=== PATIENT | female | born 1950 | race Caucasian/White ===

== ENCOUNTER 2022-04-17 07:09 | Day surgery (SDC) | payer MEDICARE, BC, SELFPAY ==
[2022-04-17] MEDS: TETRACAINE 0.5% OPHTH 1 DROP EYE-LEFT ×2 (07:30→07:35)
[2022-04-17] MEDS: KETOROLAC OPHTH 0.5% 1 DROP EYE-LEFT ×2 (07:30→07:35)
[2022-04-17 07:37] VITALS: BP 108/68; PULSE 77; RESP 16; TEMP 36.6; O2SAT 95; BMI 24.5
[2022-04-17] MEDS: ETHYL CHLORIDE 1 APPLICATION 1 APPLIC TOPICAL (07:49)
[2022-04-17] MEDS: SODIUM CHLORIDE 0.9 % (FLUSH) 10 ML SYRINGE IVF (07:50)
[2022-04-17] MEDS: TETRACAINE 0.5% OPHTH 2 DROP EYE-LEFT (08:34)
[2022-04-17] MEDS: BALANCED SALT IRRIG SOLN 15 ML EYE-LEFT (08:39)
--- NOTE | 2022-04-17 08:45 | SUR.PREOP ---
0719: The eye drops brought by the patient (Ketorolac and Prednisolone) are examined and I have determined they are labeled by the patient's pharmacy for this patient as prescribed by the surgeon. The bottles are intact, recently obtained and appear to be correct.
[2022-04-17 09:00] VITALS: BP 130/74; PULSE 74; RESP 18; TEMP 36.3; O2SAT 93
--- NOTE | 2022-04-17 09:00 | W.ANESCHARGE ---
Anesthesia Charges Start Date/Time Anesthesia Start Date: 04/17/22 Anesthesia Start Time: 08:32 Stop Date/Time Anesthesia Stop Date: 04/17/22 Anesthesia Stop Time: 09:05 Summary Emergency: No Extremes of Age: Over 68-CPT 44767
--- NOTE | 2022-04-17 09:50 | W.PM.OPTPROC ---
Procedure Note Date of procedure: 04/17/22 Will [facility] bill your pro fee for this procedure?: Yes Procedure Description: SURGEON: Manisha Ivy MD PREOPERATIVE DIAGNOSIS: Nuclear sclerotic cataract, left eye. POSTOPERATIVE DIAGNOSIS: Nuclear sclerotic cataract, left eye. NAME OF OPERATION: Phacoemulsification of cataract with posterior chamber intraocular lens implantation in the left eye. ANESTHESIA: Topical. ESTIMATED BLOOD LOSS: Less than 2 cc. COMPLICATIONS: None. PATHOLOGY SPECIMEN: None. INDICATIONS: See consult note for details. The risks, benefits and alternatives of the procedure were explained to the patient, who elected to proceed and signed informed consent to do so. PROCEDURE: The patient was brought to the pre-holding area where the left eye was identified as the operative eye. I placed my initials above this eye. The patient received eye drops consisting of 0.5% tetracaine, 1% tropicamide, 10% phenylephrine, and 0.5% ketorolac. The patient was then brought to the operating room where the left eye was again identified as the operative eye. The eye was prepped with Betadine and draped in the usual sterile ophthalmic fashion. A #15 super-sharp blade was used to create a paracentesis site. 1% non-preserved intracameral lidocaine was injected into the anterior chamber. Endocoat was injected into the anterior chamber. A 2.4 mm keratome was used to create a three-plane self-sealing incision 1 mm anterior to the temporal limbus. A cystotome was used to create an anterior capsular leaflet. The Utrata forceps were used to extend this to form a continuous curvilinear capsulorrhexis. Hydrodissection was performed. The cataract was removed with phacoemulsification using the [id number] technique. The irrigation and aspiration tip was used to remove the remaining cortex. Healon was injected into the capsular bag. An ROBERTO ZCB00 intraocular lens of 22.0 diopters was injected into the capsular bag. The irrigation and aspiration tip was used to remove the remaining viscoelastic. Balanced salt solution on a cannula was used to hydrate the wound, and the wound was found to be watertight. The pupil was noted to be round. DISPOSITION: The patient was taken to the recovery room and discharged to home in stable condition. The patient was instructed to call me or go to the emergency department with any sudden change, including dramatic loss of vision, severe pain in the eye or eyebrow region, nausea, or vomiting. The patient will follow up in the clinic tomorrow morning. Surgeon: Manisha Ivy MD
== END 2022-04-17 09:28 | disposition home or self-care (01) ==
PROVIDERS: PCP Physician Assistant; Visit Provider Ophthalmology
PROC: (CPT 66984; principal; 2022-04-17 07:30)
DX: H25.12 Age-related nuclear cataract, left eye (principal)
CPT/HCPCS: 66984; 00142; 99100; A9270; J2250; J3010; V2632

== ENCOUNTER 2022-05-01 06:08 | Day surgery (SDC) | payer MEDICARE, BC, SELFPAY ==
[2022-05-01] MEDS: TETRACAINE 0.5% OPHTH 1 DROP EYE-RIGHT ×2 (06:41→06:49)
[2022-05-01] MEDS: KETOROLAC OPHTH 0.5% 1 DROP EYE-RIGHT ×2 (06:48→06:54)
[2022-05-01 06:50] VITALS: BMI 24.5
[2022-05-01 06:56] VITALS: BP 139/68; PULSE 71; RESP 16; TEMP 36.9; O2SAT 94
[2022-05-01] MEDS: TETRACAINE 0.5% OPHTH 2 DROP EYE-RIGHT (07:17)
[2022-05-01] MEDS: BALANCED SALT IRRIG SOLN 15 ML EYE-RIGHT (07:21)
--- NOTE | 2022-05-01 07:23 | W.ANESCHARGE ---
Anesthesia Charges Start Date/Time Anesthesia Start Date: 05/01/22 Anesthesia Start Time: 07:12 Stop Date/Time Anesthesia Stop Date: 05/01/22 Anesthesia Stop Time: 07:45 Summary Emergency: Yes
[2022-05-01 07:42] VITALS: BP 129/86; PULSE 69; RESP 16; TEMP 36.4; O2SAT 93
--- NOTE | 2022-05-01 07:53 | W.ANESCHARGE ---
Anesthesia Charges Start Date/Time Anesthesia Start Date: 05/01/22 Anesthesia Start Time: 07:12 Stop Date/Time Anesthesia Stop Date: 05/01/22 Anesthesia Stop Time: 07:45 Summary Emergency: No Extremes of Age: Over 68-CPT 63785
--- NOTE | 2022-05-01 08:10 | SUR.PHASEII ---
The eye drops brought by the patient (Ketorolac and Prednisolone) are examined and I have determined they are labeled by the patient's pharmacy for this patient as prescribed by the surgeon. The bottles are intact, recently obtained and appear to be correct.
--- NOTE | 2022-05-01 08:27 | SUR.PHASEII ---
Discharge instructions reviewed with patient. Patient verbalized understanding. Discharge instruction pamphlet sent with patient.
--- NOTE | 2022-05-01 08:30 | W.PM.OPTPROC ---
Procedure Note Date of procedure: 05/01/[address] [facility] bill your pro fee for this procedure?: Yes Procedure Description: SURGEON: Manisha Ivy MD PREOPERATIVE DIAGNOSIS: Nuclear sclerotic cataract, right eye. POSTOPERATIVE DIAGNOSIS: Nuclear sclerotic cataract, right eye. NAME OF OPERATION: Phacoemulsification of cataract with posterior chamber intraocular lens implantation in the right eye. ANESTHESIA: Topical. ESTIMATED BLOOD LOSS: Less than 2 cc. COMPLICATIONS: None. PATHOLOGY SPECIMEN: None. INDICATIONS: See consult note for details. The risks, benefits and alternatives of the procedure were explained to the patient, who elected to proceed and signed informed consent to do so. PROCEDURE: The patient was brought to the pre-holding area where the right eye was identified as the operative eye. I placed my initials above this eye. The patient received eye drops consisting of 0.5% tetracaine, 1% tropicamide, 10% phenylephrine, and 0.5% ketorolac. The patient was then brought to the operating room where the right eye was again identified as the operative eye. The eye was prepped with Betadine and draped in the usual sterile ophthalmic fashion. A #15 super-sharp blade was used to create a paracentesis site. 1% non-preserved intracameral lidocaine was injected into the anterior chamber. Endocoat was injected into the anterior chamber. A 2.4 mm keratome was used to create a three-plane self-sealing incision 1 mm anterior to the temporal limbus. A cystotome was used to create an anterior capsular leaflet. The Utrata forceps were used to extend this to form a continuous curvilinear capsulorrhexis. Hydrodissection was performed. The cataract was removed with phacoemulsification using the [id number]-nvi-[id number] technique. The irrigation and aspiration tip was used to remove the remaining cortex. Healon was injected into the capsular bag. An ROBERTO ZCB00 intraocular lens of 20.5 diopters was injected into the capsular bag. The irrigation and aspiration tip was used to remove the remaining viscoelastic. Balanced salt solution on a cannula was used to hydrate the wound, and the wound was found to be watertight. The pupil was noted to be round. DISPOSITION: The patient was taken to the recovery room and discharged to home in stable condition. The patient was instructed to call me or go to the emergency department with any sudden change, including dramatic loss of vision, severe pain in the eye or eyebrow region, nausea, or vomiting. The patient will follow up in the clinic tomorrow morning. Surgeon: Manisha Ivy MD
== END 2022-05-01 08:12 | disposition home or self-care (01) ==
PROVIDERS: PCP Physician Assistant; Visit Provider Ophthalmology
PROC: (CPT 66984; principal; 2022-05-01 06:15)
DX: H25.11 Age-related nuclear cataract, right eye (principal)
CPT/HCPCS: 66984; 00142; 99100; 99140; A9270; J2250; J3010; V2632

== ENCOUNTER 2023-01-10 21:52 | Emergency (ER) | payer MEDICARE, BC, SELFPAY ==
[2023-01-10] VITALS (20 sets, daily range): BP systolic 101–126; BP diastolic 68–78; PULSE 83–109; RESP 16–18; TEMP 36.4; O2SAT 91–96; BMI 25.0
[2023-01-10] MEDS: 0.9 % SODIUM CHLORIDE 1000 ml 1,000 ML IV (22:30)
--- NOTE | 2023-01-10 22:57 | CRLHL7_ITS ---
For Patients: As a result of the Century Cures Act, medical imaging exams and procedure reports are released immediately into your electronic medical record. You may view this report before your referring provider. If you have questions, please contact your health care provider. INDICATION: Chest pain. TECHNIQUE: Chest 1 view. COMPARISON: Chest radiograph 09/22/2011. FINDINGS: No focal consolidation, pleural effusion, or pneumothorax. Normal heart size and pulmonary vascularity. Degenerative changes of the glenohumeral joints. IMPRESSION: No acute cardiopulmonary findings. Dictated by Laura Moore MD @ 01/10/2023 11:54:18 PM (Electronically Signed)
[2023-01-10] MEDS: ASPIRIN 81 MG TAB.CHEW 324 MG PO (23:04)
[2023-01-10 23:12] LABS: Basophils Percent Auto 0.1 % (0.0-3.0); Eosinophils Percent Auto 0.2 % (0.0-7.0); Hematocrit 32.4 % (33.0-51.0); Immature Granulocytes Pct Auto 0.6 %; Lymphocytes Percent Auto 6.9 % (20-44); Mean Corpuscular HGB Conc 34 gm/dL (32-36); Mean Corpuscular Hemoglobin 31 pg (26-34); Mean Corpuscular Volume 92 fL (80-100); Monocytes Percent Auto 8.9 % (0.0-11.0); Neutrophils Percent Auto 83.3 % (42.0-72.0); Platelet Count* 211 K/uL (140-440); RDW Coefficient of Variation % 12.8 % (11.5-15.5); Red Blood Count 3.53 m/uL (4.00-5.20); White Blood Count* 15.97 K/uL (4.50-11.00)
[2023-01-10 23:14] LABS: Chloride* 100 mmol/L (96-114); Potassium* 4.2 mmol/L (3.6-5.1); Sodium* 133 mmol/L (135-149)
[2023-01-10 23:15] LABS: Slide Review Reflex No
[2023-01-10 23:17] LABS: Est. Creatinine Clearance* 44.41; Estimated Glomerular Filt Rate 59 ml/min
[2023-01-10] MEDS: HEPARIN 25,000 UNIT/500 ML BAG 16 UNIT IV (23:17)
[2023-01-10 23:18] LABS: Blood Urea Nitrogen* 35 mg/dL (7-30); Calcium* 9.2 mg/dL (8.4-10.6); Carbon Dioxide* 23 mmol/L (20-32); Glucose* 143 mg/dL (60-115)
[2023-01-10] MEDS: HEPARIN 5,000 UNIT/0.5 ML INJ 4000 UNIT IVP (23:18)
[2023-01-10 23:20] LABS: INR 0.97 (0.91-1.10); Prothrombin Time 13.5 Seconds
[2023-01-10 23:21] LABS: C Reactive Protein* 1.3 mg/dL (0.5-1.0); Partial Thromboplastin Time* 26 Seconds (23-33)
[2023-01-10 23:23] LABS: D Dimer Quantitative* 0.84 ug/ml (0.00-0.50)
[2023-01-10 23:27] LABS: NT Pro B Type NatriureticPept* 1040 pg/mL
[2023-01-10 23:50] LABS: Troponin I* 8.78 ng/mL (0.01-0.04)
[2023-01-10] MEDS: 0.9 % SODIUM CHLORIDE 500 ML 500 ML IV (23:59)
[2023-01-10] MEDS: NITROGLYCERIN 0.4 MG TAB.SUBL SUBLINGUAL (23:59)
[2023-01-11] VITALS: PULSE 87; O2SAT 91
[2023-01-11 00:01] VITALS: BP 112/66; PULSE 89; RESP 18; RESP 19; TEMP 36.4; O2SAT 87
[2023-01-11 00:03] VITALS: BP 110/69; PULSE 92; O2SAT 91
[2023-01-11 00:10] VITALS: PULSE 86; O2SAT 94
[2023-01-11 00:11] VITALS: BP 108/72; PULSE 87; RESP 16; O2SAT 92
--- NOTE | 2023-01-11 00:11 | PC.NURSE ---
report given to Angela GONZALEZ at [facility].
[2023-01-11] MEDS: MORPHINE 2 MG/ML inj IVP (00:23)
[2023-01-11] MEDS: NITROGLYCERIN 0.4 MG TAB.SUBL SUBLINGUAL (00:23)
--- NOTE | 2023-01-11 00:27 | PC.NURSE ---
patient transport to EMS
--- NOTE | 2023-01-11 01:10 | ED_ITS ---
HPI - Chest Pain General Date Seen: 01/10/23 Chief Complaint: Chest Pain Stated Complaint: Rapid heart rate Time Seen by Provider: 01/10/23 22:53 Source: patient Mode of arrival: ambulatory Limitations: no limitations History of Present Illness HPI narrative: Patient is 72-year-old female who approximately at 7:00 p.m. armin developed chest discomfort with radiation to left shoulder and back, it was associated with slight nausea, and a feeling that she has had before that she describes as heartburn. She took some Gaviscon at home, felt the did not help, and then drove herself to the emergency room to be seen. She has no past history of any cardiac issues, although admits to me that she has had previous episodes the chest pain has been worked up with stress test. While she was in triage her pain went away in, she tells me it is pain-free at current time. No recent exertion causing discomfort, she denies no chest pain shortness of breath, leg swelling, coughing, she has some mild COPD she tells me. MD complaint: chest pain Pertinent past history: asthma Prior episodes: Yes Onset: during rest Pain location: substernal and left chest Pain radiation: left arm, back and left shoulder Severity: moderate Quality: tightness and aching Relieving factors: nothing Exacerbating factors: nothing Associated symptoms: nausea Treatment prior to arrival: other (Gaviscon) Risk Factors Coronary artery disease risk factors: smoking history, hypertension and family history of CAD before age 50 Thoracic aortic dissection risk factors: none Related Data On Oral Contraceptives: No Home Medications Medication Instructions Recorded Confirmed albuterol sulfate 90 mcg/actuation 1 - 2 inh inhalation Q4H PRN 04/16/22 05/01/22 aerosol inhaler budesonide-formoterol HFA 160 2 inh inhalation BID 04/16/22 05/01/22 mcg-4.5 mcg/actuation aerosol inhaler bupropion HCl 300 mg 24 hr tablet, 300 mg PO .AM 04/16/22 05/01/22 extended release clotrimazole 10 mg mercedez 10 mg mucous membrane 5XD 04/16/22 05/01/22 fluvoxamine 100 mg tablet 100 mg PO HS 04/16/22 05/01/22 fluvoxamine 50 mg tablet 50 mg PO HS 04/16/22 05/01/22 glucosamine sulfate dipotassium Cl 1 cap PO DAILY 04/16/22 05/01/22 500 mg-chondroitin 400 mg capsule guaifenesin 1,200 mg tablet, 1,200 mg PO BID PRN 04/16/22 05/01/22 extended release 12 hr ipratropium 0.5 mg-albuterol 3 mg 3 ml inhalation QID PRN 04/16/22 05/01/22 (2.5 mg base)/3 mL nebulization soln lorazepam 0.5 mg tablet 0.5 mg PO BID PRN 04/16/22 05/01/22 multivitamin (Multiple Vitamins 1 tab PO DAILY 04/16/22 05/01/22 tablet) omega 3-qby-hry-fish oil 1,200 mg 1 cap PO DAILY 04/16/22 05/01/22 (144 mg-216 mg) capsule omeprazole 20 mg capsule,delayed 20 mg PO DAILY 04/16/22 05/01/22 release quetiapine 400 mg tablet (Seroquel) 400 mg PO QHS 04/16/22 05/01/22 Allergies Allergy/AdvReac Type Severity Reaction Status Date / Time levofloxacin [From Levaquin] Allergy Hives Verified 04/17/22 08:31 azithromycin AdvReac Verified 04/17/22 08:31 Erythromycin Allergy Intermediate upset Uncoded 03/19/22 13:51 stomach Quinolones Allergy Mild hives Uncoded 03/19/22 13:51 Review of Systems Status of ROS Reports: 10 or more systems reviewed and unremarkable except as noted in History and below [facility] Medical History Major depressive disorder, recurrent, in full remission ?F33.42 - Major depressive disorder, recurrent, in full remission (ICD-10) Pulmonary nodule, right ?R91.1 - Solitary pulmonary nodule (ICD-10) Osteopenia ?M85.80 - Other specified disorders of bone density and structure, unspecified site (ICD-10) Knee osteoarthritis ?M17.9 - Osteoarthritis of knee, unspecified (ICD-10) Acute gastric ulcer with hemorrhage, without mention of obstruction ?K25.0 - Acute gastric ulcer with hemorrhage (ICD-10) Alcohol abuse, in remission ?F10.11 - Alcohol abuse, in remission (ICD-10) OCD (obsessive compulsive disorder) ?F42.9 - Obsessive-compulsive disorder, unspecified (ICD-10) Generalized anxiety disorder ?F41.1 - Generalized anxiety disorder (ICD-10) Agoraphobia with panic disorder ?F40.01 - Agoraphobia with panic disorder (ICD-10) COPD (chronic obstructive pulmonary disease) ?J44.9 - Chronic obstructive pulmonary disease, unspecified (ICD-10) Major depressive disorder ?F32.9 - Major depressive disorder, single episode, unspecified (ICD-10) Surgical History History of esophagogastroduodenoscopy (EGD) ?Z98.890 - Other specified postprocedural states (ICD-10) Hx of arthroscopy of left knee ?Z98.890 - Other specified postprocedural states (ICD-10) History of left knee replacement ?Z96.652 - Presence of left artificial knee joint (ICD-10) Hx of tubal ligation ?Z98.51 - Tubal ligation status (ICD-10) Social History Smoking Status: Former smoker What tobacco products do you use: cigarettes Smoking quit date/years: <= 15 years ago How often do you have a drink containing alcohol: never How often do you have six or more drinks on one occasion: Never AUDIT-C Alcohol total score: 0 Non-prescribed substance use: denies use Caffeine: Yes Exam Narrative Exam Narrative: Patient is seen and stabilization room 2, he is alert oriented speaking to me normally. Her pupils are equal round reactive to light her GCS is 15/15, TMs are normal, carotid upstrokes are equal bilaterally heard JVP is flat, her chest is clear bilaterally with no wheezing crackles noted, her heart sounds are normal no clicks murmurs or gallops, her abdomen is soft, there is no tenderness to palpation bowel sounds are normal, no CVA tenderness and she moves all extremities independently well with absence of edema her distal pulses are normal, her normal power bilaterally in both her proximal distal extremities, and she has symmetrically normal. Neurologically cranial nerves 3-12 are normal. Const Vital Signs, click to edit/add: Vital Signs - 24 hr 01/10/23 22:02 01/10/23 22:39 01/10/23 22:41 Temperature 97.6 F Pulse Rate 90 90 Pulse Rate [Pulse Oximeter] 109 H Respiratory Rate 16 16 16 Blood Pressure 101/68 Blood Pressure [Right Upper Arm] 121/78 Pulse Oximetry 91 91 92 Oxygen Delivery Method Room Air Oxygen Flow Rate 01/10/23 22:42 01/10/23 22:47 01/10/23 22:50 Temperature Pulse Rate 90 91 88 Pulse Rate [Pulse Oximeter] Respiratory Rate 18 18 Blood Pressure 117/68 Blood Pressure [Right Upper Arm] Pulse Oximetry 93 92 91 Oxygen Delivery Method Oxygen Flow Rate 01/10/23 22:51 01/10/23 23:00 01/10/23 23:01 Temperature Pulse Rate 88 90 88 Pulse Rate [Pulse Oximeter] Respiratory Rate 18 16 18 Blood Pressure 104/72 113/75 Blood Pressure [Right Upper Arm] Pulse Oximetry 94 94 93 Oxygen Delivery Method Oxygen Flow Rate 01/10/23 23:14 01/10/23 23:20 01/10/23 23:21 Temperature Pulse Rate 96 89 89 Pulse Rate [Pulse Oximeter] Respiratory Rate 18 18 16 Blood Pressure 126/75 Blood Pressure [Right Upper Arm] Pulse Oximetry 94 96 95 Oxygen Delivery Method Oxygen Flow Rate 01/10/23 23:30 01/10/23 23:31 01/10/23 23:32 Temperature Pulse Rate 84 85 85 Pulse Rate [Pulse Oximeter] Respiratory Rate 16 18 Blood Pressure 116/75 Blood Pressure [Right Upper Arm] Pulse Oximetry 94 93 95 Oxygen Delivery Method Room Air Oxygen Flow Rate 01/10/23 23:40 01/10/23 23:41 01/10/23 23:50 Temperature Pulse Rate 84 83 85 Pulse Rate [Pulse Oximeter] Respiratory Rate Blood Pressure 117/73 Blood Pressure [Right Upper Arm] Pulse Oximetry 93 93 93 Oxygen Delivery Method Oxygen Flow Rate 01/10/23 23:51 01/10/23 23:56 01/11/23 00:00 Temperature Pulse Rate 84 85 87 Pulse Rate [Pulse Oximeter] Respiratory Rate 18 16 Blood Pressure 119/75 120/74 Blood Pressure [Right Upper Arm] Pulse Oximetry 93 95 91 Oxygen Delivery Method Oxygen Flow Rate 01/11/23 00:01 01/11/23 00:01 01/11/23 00:01 Temperature 97.5 F L Pulse Rate 89 89 89 Pulse Rate [Pulse Oximeter] Respiratory Rate 19 18 Blood Pressure 112/66 112/66 112/66 Blood Pressure [Right Upper Arm] Pulse Oximetry 87 L 87 L 87 L Oxygen Delivery Method Nasal Cannula Nasal Cannula Nasal Cannula Oxygen Flow Rate 1 1 1 01/11/23 00:01 01/11/23 00:03 01/11/23 00:10 Temperature Pulse Rate 89 92 86 Pulse Rate [Pulse Oximeter] Respiratory Rate 18 Blood Pressure 112/66 110/69 Blood Pressure [Right Upper Arm] Pulse Oximetry 87 L 91 94 Oxygen Delivery Method Nasal Cannula Nasal Cannula Oxygen Flow Rate 1 1 01/11/23 00:11 Temperature Pulse Rate 87 Pulse Rate [Pulse Oximeter] Respiratory Rate 16 Blood Pressure 108/72 Blood Pressure [Right Upper Arm] Pulse Oximetry 92 Oxygen Delivery Method Nasal Cannula Oxygen Flow Rate 1 Course Course Hospital Course: Patient was seen or her EKG was seen initially, this showed what appeared to be a an acute STEMI, ST elevation is seen V2 through V6, and also laterally in 1 aVL, some mild reciprocal changes are noted in the inferior leads. She however was pain-free by the this time, the other was another trauma ongoing during this time that a split my attention between these 2 patients, after her initial point of care troponin came back elevated at 4.5, I contacted cardiology at [facility], unfortunately they were very busy it took 40 minutes them to return my call. I spoke to from cardiology there, by then we had 2 further EKGs, which showed some normalization of her EKG in comparison to the [address] elevation came down nicely, but she had Q-waves notable across the precordial leads. 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 Vital Signs Vital signs: Initial Vital Signs Temperature 97.6 F 01/10/23 22:02 Temperature Source Temporal Artery Scan 01/10/23 22:02 Pulse Rate 109 H 01/10/23 22:02 Respiratory Rate 16 01/10/23 22:02 Blood Pressure 121/78 01/10/23 22:02 Blood Pressure Mean 92 01/10/23 22:02 Blood Pressure Position Sitting 01/10/23 22:02 Pulse Oximetry 91 01/10/23 22:02 Oxygen Delivery Method Room Air 01/10/23 22:02 Vital Signs Temperature 97.6 F 01/10/23 22:02 Pulse Rate 109 H 01/10/23 22:02 Respiratory Rate 16 01/10/23 22:02 Blood Pressure 121/78 01/10/23 22:02 Pulse Oximetry 91 01/10/23 22:02 Oxygen Delivery Method Room Air 01/10/23 22:02 Temperature 97.5 F L 01/11/23 00:01 Pulse Rate 87 01/11/23 00:11 Respiratory Rate 16 01/11/23 00:11 Blood Pressure 108/72 01/11/23 00:11 Pulse Oximetry 92 01/11/23 00:11 Oxygen Delivery Method Nasal Cannula 01/11/23 00:11 Oxygen Flow Rate 1 01/11/23 00:11 MDM - Chest Pain MDM Narrative Medical decision making narrative: During the evaluation of this patient I considered multiple differential diagnosis is. The life-threatening differential diagnosis include coronary disease/[place], pulmonary embolism, pneumothorax, pneumonia, and aortic dissection. Other differential diagnosis included but were not limited to pericarditis, myocarditis, chest wall pain, GERD, esophageal rupture, rib fracture contusion, pleurisy, as well as other etiologies. Medical Records Data Attestation: I reviewed the patient's medical records. Lab Data Attestation: I reviewed the patient's lab results. Labs: Lab Results 01/10/23 Range/Units 22:39 WBC 15.97 H (4.50-11.00) K/uL RBC 3.53 L (4.00-5.20) m/uL Hgb 11.0 L (12.0-16.0) gm/dL Hct 32.4 L (33.0-51.0) % MCV 92 (80-100) fL MCH 31 (26-34) pg MCHC 34 (32-36) gm/dL RDW Coeff of Jacque 12.8 (11.5-15.5) % Plt Count 211 (140-440) K/uL Neut % (Auto) 83.3 H (42.0-72.0) % Lymph % (Auto) 6.9 L (20-44) % [place] % (Auto) 8.9 (0.0-11.0) % Eos % (Auto) 0.2 (0.0-7.0) % Baso % (Auto) 0.1 (0.0-3.0) % Neut # (Auto) 13.30 H (1.7-7.0) K/uL Lymph # (Auto) 1.10 (0.90-2.90) K/uL [place] # (Auto) 1.40 H (0.00-0.90) K/UL Eos # (Auto) 0.00 (0.00-0.50) K/uL Baso # (Auto) 0.00 (0.00-0.30) K/uL INR 0.97 (0.91-1.10) APTT 26 (23-33) Seconds D-Dimer Quant (PE/DVT) 0.84 H (0.00-0.50) ug/ml Sodium 133 L (135-149) mmol/L Potassium 4.2 (3.6-5.1) mmol/L Chloride 100 (96-114) mmol/L Carbon Dioxide 23 (20-32) mmol/L BUN 35 H (7-30) mg/dL Creatinine 1.0 (0.5-1.5) mg/dL Estimated Creat Clear 44.41 Estimated GFR 59 ml/min Glucose 143 H (60-115) mg/dL Calcium 9.2 (8.4-10.6) mg/dL Troponin I 8.78 H* (0.01-0.04) ng/mL C-Reactive Protein 1.3 H (0.5-1.0) mg/dL NT-Pro-B Natriuret Pep 1040 pg/mL Imaging Data Chest x-ray: My impression: Normal chest x-ray ECG Data Attestation: I personally reviewed and interpreted this ECG as follows: ECG interpretation date: 01/10/23 Ischemic changes: acute STEMI Critical Care Time Critical Care Time Critical Care Time: Yes Attestation: The patient required my highest level preparedness to intervene emergently and I personally spent this critical care time directly and personally managing the patient. This critical care time included: Obtaining a history; Examining the patient; Pulse oximetry; Ordering and reviewing of studies; Arranging urgent treatment with development of a management plan; Evaluation of patients response to treatment; Frequent reassessment discussions with other providers. This critical care time was performed to assess and manage the high probability of imminent life-threatening deterioration that could result in multiorgan failure. It was exclusive of separate billable procedures and treating other patients and teaching time. Total Critical Care Time in Minutes: 45 Discharge Plan Discharge Clinical Impression: ST elevation (STEMI) myocardial infarction Patient Disposition: Xfer [facility] Discharge Location: [facility] Condition: Critical Prescriptions: No Action albuterol sulfate 90 mcg/actuation HFA aerosol inhaler 1 - 2 inh inhalation Q4H PRN ipratropium-albuterol 0.5 mg-3 mg(2.5 mg base)/3 mL solution for nebulization 3 ml inhalation QID PRN budesonide-formoterol 160-4.5 mcg/actuation HFA aerosol inhaler 2 inh inhalation BID bupropion HCl 300 mg tablet extended release 24 hr 300 mg PO .AM clotrimazole 10 mg mercedez 10 mg mucous membrane 5XD omega 4-qmw-qxo-fish oil 1,200 (144-216) mg capsule 1 cap PO DAILY fluvoxamine 100 mg tablet 100 mg PO HS Patient Comments: TAKE 1 TABLET BY MOUTH IN THE MORNING AND AT BEDTIME fluvoxamine 50 mg tablet 50 mg PO HS glucosamine gomez 2KCl-chondroit 500-400 mg capsule 1 cap PO DAILY Rx Instructions: give with meal/snack guaifenesin 1,200 mg tablet extended release 12hr 1,200 mg PO BID PRN lorazepam 0.5 mg tablet 0.5 mg PO BID PRN multivitamin [Multiple Vitamins] Tablet 1 tab PO DAILY omeprazole 20 mg capsule,delayed release(DR/EC) 20 mg PO DAILY quetiapine [Seroquel] 400 mg tablet 400 mg PO QHS Follow Up/Referrals: Shivani Conteh PA [Primary Care Provider] -
== END 2023-01-11 00:29 | disposition short-term general hospital (02) ==
LOC: ED 22:59
PROVIDERS: Emergency Provider Family Medicine; PCP Physician Assistant
DX: I21.3 ST elevation (STEMI) myocardial infarction of unspecified site (principal)
CPT/HCPCS: 36415; 71045; 80048; 83880; 84484; 85025; 85379; 85610; 85730; 86140; 93005; 96374; 99285; 99291; A9270; J1644; J2270; J7030; J7120

== ENCOUNTER 2023-01-11 00:14 | Outpatient (CLI) | payer MEDICARE, BC, SELFPAY | END 2023-01-11 00:15 | disposition home or self-care (01) | PROVIDERS: PCP Physician Assistant; Visit Provider Family Medicine | DX: I21.3 ST elevation (STEMI) myocardial infarction of unspecified site (principal) | CPT/HCPCS: A0425; A0434 ==

== ENCOUNTER 2024-01-25 16:20 | Emergency (ER) | payer MEDICARE, BC, SELFPAY ==
[2024-01-25 16:25] VITALS: BP 124/71; PULSE 81; RESP 18; TEMP 35.8; O2SAT 94; BMI 24.1
--- NOTE | 2024-01-25 16:48 | CRLHL7_ITS ---
For Patients: As a result of the Cures Act, medical imaging exams and procedure reports are released immediately into your electronic medical record. You may view this report before your referring provider. If you have questions, please contact your health care provider. Indication: Fall. Technique: Right knee, 3 views. Comparison: None. Findings/impression: Bones: Right knee arthroplasty changes. The orthopedic hardware appears to be in appropriate alignment. No evidence of hardware fracture or loosening.. Joint spaces: Small to moderate suprapatellar effusion. Soft tissues: Significant soft tissue swelling overlying the patella.. Dictated by Vineet Izaguirre MD @ 01/25/2024 6:33:14 PM (Electronically Signed)
--- NOTE | 2024-01-25 16:48 | ED_ITS ---
HPI - Fall General Chief Complaint: Fall/Minor Trauma Stated Complaint: fall; hit head and right knee (had surgery) Time Seen by Provider: 01/25/24 16:23 History of Present Illness HPI Narrative: This 73-year-old female comes in with an injury to her right knee. She had her right knee replaced 3 months ago and today she fell in the garage onto her right knee. She also did bump the right side of her head but did not have loss of consciousness. She does report some discomfort in her jaw but has normal range of motion and teeth are aligned normally. She was able to get up and ambulate. She does take a baby aspirin daily and does have some swelling and ecchymosis over the patella of the right knee. Related Data Home Medications ?Medication ?Instructions ?Recorded ?Confirmed albuterol sulfate 90 mcg/actuation 1 - 2 inh inhalation Q4H PRN 04/16/22 01/25/24 aerosol inhaler budesonide-formoterol HFA 160 2 inh inhalation BID 04/16/22 01/25/24 mcg-4.5 mcg/actuation aerosol inhaler bupropion HCl 300 mg 24 hr tablet, 300 mg PO .AM 04/16/22 01/25/24 extended release fluvoxamine 100 mg tablet 100 mg PO HS 04/16/22 01/25/24 fluvoxamine 50 mg tablet 50 mg PO HS 04/16/22 01/25/24 glucosamine sulfate dipotassium Cl 1 cap PO DAILY 04/16/22 01/25/24 500 mg-chondroitin 400 mg capsule multivitamin (Multiple Vitamins 1 tab PO DAILY 04/16/22 01/25/24 tablet) omega 6-bwg-scp-fish oil 1,200 mg 1 cap PO DAILY 04/16/22 01/25/24 (144 mg-216 mg) capsule omeprazole 20 mg capsule,delayed 20 mg PO DAILY 04/16/22 01/25/24 release quetiapine 400 mg tablet (Seroquel) 400 mg PO QHS 04/16/22 01/25/24 acetaminophen 01/25/24 aspirin 01/25/24 atorvastatin 40 mg tablet 40 mg PO QPM 01/25/24 01/25/24 Allergies Allergy/AdvReac Type Severity Reaction Status Date / Time levofloxacin [From Levaquin] Allergy Hives Verified 04/17/22 08:31 azithromycin AdvReac Verified 04/17/22 08:31 Erythromycin Allergy Intermediate upset Uncoded 03/19/22 13:51 stomach Quinolones Allergy Mild hives Uncoded 03/19/22 13:51 Review of Systems Status of ROS: Reports: 10 or more systems reviewed and unremarkable except as noted in History and below Narrative: Constitutional: No fevers, no weight gain or loss. Eyes: No discharge. No vision changes. HENT: No congestion, no sore throat, no ear pain. Cardiovascular: No chest pain, no palpitations. Respiratory: No shortness of breath, no wheezes, no cough. Gastrointestinal: No abdominal pain, no vomiting, no diarrhea. Genitourinary: No dysuria, no hematuria. Musculoskeletal: Normal range of motion. Skin: No rashes, no pruritis. Neurological: No dizziness, weakness, sensory change, speech change. Endo/Heme/Allergies: No bruising or bleeding. No polydipsia. Pysch: no suicidality, no anxiety, no insomnia. All other systems reviewed and are negative. [facility] Medical History Major depressive disorder, recurrent, in full remission ?F33.42 - Major depressive disorder, recurrent, in full remission (ICD-10) Pulmonary nodule, right ?R91.1 - Solitary pulmonary nodule (ICD-10) Osteopenia ?M85.80 - Other specified disorders of bone density and structure, unspecified site (ICD-10) Knee osteoarthritis ?M17.9 - Osteoarthritis of knee, unspecified (ICD-10) Acute gastric ulcer with hemorrhage, without mention of obstruction ?K25.0 - Acute gastric ulcer with hemorrhage (ICD-10) Alcohol abuse, in remission ?F10.11 - Alcohol abuse, in remission (ICD-10) OCD (obsessive compulsive disorder) ?F42.9 - Obsessive-compulsive disorder, unspecified (ICD-10) Generalized anxiety disorder ?F41.1 - Generalized anxiety disorder (ICD-10) Agoraphobia with panic disorder ?F40.01 - Agoraphobia with panic disorder (ICD-10) COPD (chronic obstructive pulmonary disease) ?J44.9 - Chronic obstructive pulmonary disease, unspecified (ICD-10) Major depressive disorder ?F32.9 - Major depressive disorder, single episode, unspecified (ICD-10) Surgical History History of esophagogastroduodenoscopy (EGD) ?Z98.890 - Other specified postprocedural states (ICD-10) Hx of arthroscopy of left knee ?Z98.890 - Other specified postprocedural states (ICD-10) History of left knee replacement ?Z96.652 - Presence of left artificial knee joint (ICD-10) Hx of tubal ligation ?Z98.51 - Tubal ligation status (ICD-10) Social History Smoking Status: Former smoker What tobacco products do you use: cigarettes Smoking quit date/years: <= 15 years ago How often do you have a drink containing alcohol: never How often do you have six or more drinks on one occasion: Never AUDIT-C Alcohol total score: 0 Non-prescribed substance use: denies use Caffeine: Yes Exam Narrative: Exam Narrative: Constitutional: Well-developed, well-nourished, no acute distress. HEENT: Small superficial abrasion over the right zygomatic arch. Neck: Normal range of motion. Nontender. Supple. Heart: Regular. No murmurs. Normal rate. Intact distal pulses. Lungs: Clear to auscultation. No chest discomfort. No wheezes, rhonchi, or rales. Abdomen: Normal bowel sounds. Nontender. No rebound tenderness. Genitalia: Deferred. Back: No midline tenderness. Normal range of motion. Extremities: Right knee has normal range of motion. There is no skin injury. There is some swelling over the patella with ecchymosis. The patient is able to ambulate without any discomfort. Skin: Intact. No rash. Warm. No erythema or pallor. Neurologic: No altered sensation. No weakness. Alert and oriented. Psychiatric: No suicidality. No anxiety or depression. No insomnia. Nursing notes and vitals signs are reviewed. Const: Vital Signs, click to edit/add: Vital Signs - 24 hr 01/25/24 16:25 Temperature 96.4 F L Pulse Rate [Pulse Oximeter] 81 Respiratory Rate 18 Blood Pressure [Ri ght Upper Arm] 124/71 Pulse Oximetry 94 Oxygen Delivery Me thod Room Air Course Vital Signs Vital signs: Initial Vital Signs Temperature 96.4 F L 01/25/24 16:25 Temperature Source Temporal Artery Scan 01/25/24 16:25 Pulse Rate 81 01/25/24 16:25 Respiratory Rate 18 01/25/24 16:25 Blood Pressure 124/71 01/25/24 16:25 Blood Pressure Mean 88 01/25/24 16:25 Blood Pressure Position Sitting 01/25/24 16:25 Pulse Oximetry 94 01/25/24 16:25 Oxygen Delivery Method Room Air 01/25/24 16:25 Vital Signs Temperature 96.4 F L 01/25/24 16:25 Pulse Rate 81 01/25/24 16:25 Respiratory Rate 18 01/25/24 16:25 Blood Pressure 124/71 01/25/24 16:25 Pulse Oximetry 94 01/25/24 16:25 Oxygen Delivery Method Room Air 01/25/24 16:25 Temperature 96.4 F L 01/25/24 16:25 Pulse Rate 81 01/25/24 16:25 Respiratory Rate 18 01/25/24 16:25 Blood Pressure 124/71 01/25/24 16:25 Pulse Oximetry 94 01/25/24 16:25 Oxygen Delivery Method Room Air 01/25/24 16:25 MDM - Fall MDM Narrative Medical decision making narrative: This patient comes in for evaluation of an injury to her right knee that was replaced about 3 months ago. She fell prior to arrival but was able to get up and ambulate. She does have some swelling and bruising overlying the patella. An x-ray of the right knee is obtained and by my review there is no sign of fracture or malalignment. Radiology report is pending. The patient feels okay to return home and is not complaining of much pain. She will use [id number] medicines as needed and directed. Discharge Plan Discharge Clinical Impression: Contusion of knee Patient Disposition: Home, Self-Care Condition: Stable Additional Instructions: Continue current plans. Increase activity as tolerated. Follow up with MD return if worsening. Prescriptions: No Action atorvastatin 40 mg tablet 40 mg PO QPM aspirin acetaminophen albuterol sulfate 90 mcg/actuation HFA aerosol inhaler 1 - 2 inh inhalation Q4H PRN budesonide-formoterol 160-4.5 mcg/actuation HFA aerosol inhaler 2 inh inhalation BID bupropion HCl 300 mg tablet extended release 24 hr 300 mg PO .AM omega 1-wws-lep-fish oil 1,200 (144-216) mg capsule 1 cap PO DAILY fluvoxamine 100 mg tablet 100 mg PO HS Patient Comments: TAKE 1 TABLET BY MOUTH IN THE MORNING AND AT BEDTIME fluvoxamine 50 mg tablet 50 mg PO HS glucosamine gomez 2KCl-chondroit 500-400 mg capsule 1 cap PO DAILY Rx Instructions: give with meal/snack multivitamin [Multiple Vitamins] Tablet 1 tab PO DAILY omeprazole 20 mg capsule,delayed release(DR/EC) 20 mg PO DAILY quetiapine [Seroquel] 400 mg tablet 400 mg PO QHS Follow Up/Referrals: Shivani Conteh PA [Referring] - Stand Alone Forms: [facility] Info Instructions
--- OUTSIDE RECORDS SUMMARY | 2024-01-25 17:28 | XMS_ITS | Clinical Summary ---
Author Organization [employer] [facility] Address [place], [place] [address] Care Team Providers Care Research Hydraulic Engineer Name Role Phone Peg Maravilla Primary Care Provider [phone] Allergies Active Allergy Reactions Criticality Noted Date Comments Azithromycin Other - Describe In Comment Field 06/09/2013 Interferes with taking Seroquel Erythromycin GI Upset 05/06/2007 Levofloxacin Hives 05/15/2011 Medications Medication Sig Dispensed Refills Start Date End Date Status MULTIVITAMIN TAB Take 1 Tablet by mouth once daily. Contains 0.4 mg of Folic Acid. 0 05/06/2007 Active phototherapy light boxIndications:Major depressive disorder, recurrent episode, unspecified As directed. For home use. 1 unit 0 08/07/2011 Active glucosamine-chondroi tin, 500-400 mg, (COSAMIN DS 500/400) 500-400 mg cap Take 1 Capsule by mouth once daily. Taking 1500 mg daily 0 01/18/2014 Active Fish Oil-DHA-EPA 1,200-144-216 mg cap Take 1 Capsule by mouth once daily. 0 01/18/2014 Active NebulizerIndications :COPD, moderate (HC) Nebulizer, neb kit, neb cup and mask. Medication: Duoneb For home use. Length of need for Medicare patients: lifetime. Diagnosis 496 COPD 1 Device 0 04/08/2014 Active acetaminophen (TYLENOL EXTRA STRGTH) 500 mg tablet Take 1,000 mg by mouth every 6 hours if needed for Pain or Temp > (Specify). 01/27/2015 Active albuterol HFA (ProAir HFA) 90 mcg/actuation inhalerIndications:C OPD, moderate (HC) Inhale 1-2 Puffs by mouth every 4 hours if needed for Shortness Of Breath. 8.5 g 2 07/23/2022 Active clotrimazole (MYCELEX MERCEDEZ) 10 mg mercedez Dissolve 10 mg in the mouth 4 times daily if needed. Active aspirin chewable 81 mg chewable tabletIndications:Ac gonzalo HFrEF (heart failure with reduced ejection fraction) (HC) Chew 1 Tablet (81 mg) by mouth once daily. 30 Tablet 3 01/12/2023 Active atorvastatin (LIPITOR) 40 mg tabletIndications:Ac gonzalo HFrEF (heart failure with reduced ejection fraction) (HC) Take 1 Tablet (40 mg) by mouth at bedtime. 90 Tablet 3 02/20/2023 Active budesonide-formotero L (Symbicort) 160-4.5 mcg/actuation (160-4.5 mcg each actuation) inhalerIndications:C OPD, moderate (HC) INHALE TWO PUFFS BY MOUTH TWICE DAILY 30.6 g 4 03/18/2023 Active albuterol-ipratropiu m (DUONEB) (2.5-0.5 mg) in 3 mL NEBULIZATION solutionIndications: COPD, moderate (HC) Use one nebulizer once daily. Increase up to four times daily as needed. 270 mL 3 03/19/2023 Active LORazepam (ATIVAN) 0.5 mg tabIndications:Gener alized anxiety disorder Take 1 Tablet (0.5 mg) by mouth once daily if needed for Anxiety. 15 Tablet 04/02/2023 Active buPROPion (WELLBUTRIN XL) 300 mg Extended-Release tabletIndications:Ma jeremías depressive disorder, recurrent, in full remission (HC) Take 1 Tablet (300 mg) by mouth every morning. 90 Tablet 1 07/25/2023 Active fluvoxaMINE (LUVOX) 100 mg tabletIndications:Ma jeremías depressive disorder, recurrent, in full remission (HC),Generalized anxiety disorder,Obsessive-c ompulsive disorder, unspecified type TAKE ONE TABLET IN THE MORNING AND 1 TABLET AT BEDTIME, 180 Tablet 1 07/25/2023 Active fluvoxaMINE (LUVOX) 50 mg tabletIndications:Ma jeremías depressive disorder, recurrent, in full remission (HC) Take 1 Tablet (50 mg) by mouth two times daily. Take with 100 mg tab for total of 150 mg twice daily. 180 Tablet 1 07/25/2023 Active QUEtiapine (SEROQUEL) 400 mg tabletIndications:Ma jeremías depressive disorder, recurrent, in full remission (HC),Generalized anxiety disorder,Obsessive-c ompulsive disorder, unspecified type Take 1 Tablet by mouth at bedtime. 90 Tablet 1 07/25/2023 Active triamcinolone 0.5% (ARISTOCORT) 0.5 % creamIndications:Chr onic eczema Apply topically to affected area(s) two times daily. To eczema areas as needed. 15 g 1 10/13/2023 Active omeprazole (PRILOSEC) 20 mg Delayed-Release capsuleIndications:C hronic GERD Take 1 Capsule (20 mg) by mouth once daily before a meal 90 Capsule 2 10/22/2023 Active Active Problems Patient Care Coordination No te Formatting of this note migh t be different from the original. My Care Team Patient Care Team: Dr. Adonis Watts as PCP - General - [phone] Linn Walsh event decorator and designer -[facility] (Registered Nurse)[phone] My Emergency Plan If you are having the following symptoms, call your doctor's office at [phone]. Ask for the triage nurse and tell them you have COPD and what symptoms you are having : -more shortness of breath than usual -more swelling of your feet, ankles, legs, or stomach than usual -feeling more tired than usual (no energy) -a dry, hacking cough -feeling dizzy -feeling uneasy: you know something is not right -harder to breathe when lying down (need to sleep sitting in a Chair) Go to the emergency room or call 911 if you have any of the following: -struggling to breathe: unrelieved shortness of breath while sitting still -chest pain -confusion or unable to think clearly. Please Call Dr. Adonis Watts: [phone] [facility] and after hours nurse triage [phone] RN Clinic [employer] As[employer]er Linn Walsh RN [phone] Problem Noted Date Diagnosed Date COPD, moderate 10/08/2023 Acute HFrEF (heart failure with reduced ejection fraction) 10/08/2023 Stricture of artery 10/08/2023 Primary cardiomyopathy 10/08/2023 Moderate episode of recurrent major depressive d isorder 06/17/2023 Last Assessment & Plan: Chart update only. ANAYA Segura .................... 06/17/2023 1:31 PM Major depressive disorder, recurrent, in full re mission 08/02/2020 Pulmonary nodule, right 03/30/2020 Overview: Two nodules, right lower lobe. CT done Mar 2020. Repeat in one year. Left mid foot arthritis 11/10/2014 Osteopenia 08/23/2013 Overview: Bone density done at [facility]. Repeat Aug 2015. Bone density June 2016 osteopenia. Repeat 3-5 years. Bone density June 2020, osteopenia, worsening. Repeat 3-5 years. Knee osteoarthritis 11/27/2012 Acute gastric ulcer with hem orrhage, without mention of obstruction 06/18/2012 Overview: EGD 06/2012 gastritis with bleeding, repeat EGD in 3 months EGD 09/2013 no ulcer, normal Right talonavicular arthritis 04/23/2012 OCD (obsessive compulsive disorder) 07/03/2011 Alcohol abuse, in remission 07/03/2011 Generalized anxiety disorder 06/04/2011 Encounter for long-term (current) use of other m edications 06/04/2011 Overview: Benzodiazepine. No contract. No evidence of misuse; ok to fill monthly unless this changes. ACP (advance care planning) 05/31/2011 Overview: Patient has identified Health Care Agent(s): No Add Health Care Agents: No Patient has Advance Care Plan Documents (Health Care Directive, POLST): No, outside sales manager to review with patient . Patient has identified Specific Treatment Preferences: No Linn Walsh RN .................... 05/31/2011 2:29 PM Specific limits to treatment preferences NOT identified: ASSUME FULL TREATMENT. 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 Routine general medical exam ination at a health care facility 08/21/2010 08/16/2011 Overview: Gets Efficiency Analyst services and Mammogram at [facility]. 08/21/2010 Encounters Date Type Department Care Team Description 01/23/2024 9:45 AM CDT Telemedicine [facility] [address] [place] [address] Elayne Penaloza MD Medication Management; Telehealth from Last 3 Months Immunizations Name Administration Dates Next Due AMB INFLUENZA IIV3 (AGE 65+ YRS) PF (Flu Clinic Only) 06/12/2018 AMB Influenza, IIV4 PF (=>6 mos Flulaval,Fluzone Fluarix)(Flu Clinic Only) 03/31/2014 COVID-19 vaccine (Pfizer-Bio NTech 30mcg/0.3mL) 12YO+ BIVALENT PF, MDV 07/23/2022 COVID-19 vaccine (Pfizer-Bio NTech 30mcg/0.3mL) 12YO+ ZAHIRA-SUCROSE PF, MDV 02/06/2022 COVID-19 vaccine (Pfizer-Bio NTech 30mcg/0.3mL) PF, MDV 04/19/2021,10/03/2020,09/12/2020 Influenza, High-dose Inactivated 04/03/2016,09/2014 Influenza, High-dose Quadriv alent Inactivated 04/08/2023 Influenza, IIV3 (Age 6-35 mos) 05/20/2011 Influenza, IIV3 (Age >=3 years) 06/09/2013,05/21,08/21/2010 Influenza, IIV4 03/31/2014 Influenza, Inactivated AIIV4 (Age 65+ Years) Preserv Free 04/12/2022,04/19/2021,03/28/2020 Influenza, Inactivated IIV3 (Age 65+ Years) Preserv Free 04/23/2019,04/08/2017 Pneumococcal Poly,23-Valent (Pneumovax) 06/27/20 16,05/23/2011 Pneumococcal conj 13-Valent (Prevnar 13) 015 Td, Preservative Free (age >= 7 Years) Tdap 08/21/2010 Zoster (Shingrix-RZV, recombinant) 10/17/2020, Zoster (Zostavax-ZVL, live) 06/09/2013 Family History Medical History Relation Name Comments Asthma Father COPD as well Anesthesia Problem No Family History Blood Disease No Family History Cancer-breast No Family History Cancer-ovarian No Family History Relation Name Status Comments Father Social History Tobacco Use Types Packs/Day Years Used Date Smoking Tobacco: Former Cigarettes 1 38.8 1 973 - 05/17/2011 Smokeless Tobacco: Never Tobacco Cessation:Counseling Given: Yes Alcohol Use Standard Drinks/Week Comments No 0 (1 standard drink = 0.6 oz pur e alcohol) PHQ-2 Answer Date Recorded PHQ-2 TOTAL SCORE 0 07/25/2023 Social Connections Answer Date Recorded Frequency of Communication with Friends and Fami ly 0 06/16/2023 Alcohol Use Answer Date Recorded How often do you have a drink containing alcohol ? 0 01/18/2022 Average Number of Drinks Not on file 022 Frequency of Binge Drinking Not on file 02/2022 Financial Resource Strain Answer Date R ecorded Difficulty of Paying Living Expenses 3 06/16/2023 Difficulty of Paying Living Expenses Not on file 06/16/2023 Food Insecurity Answer Date Recorded Worried About Running Out of Food in the Last Ye ar 1 06/16/2023 Transportation Needs Answer Date Record ed Lack of Transportation (Medical) 1 06/16/2023 Housing Stability Answer Date Recorded Unable to Pay for Housing in the Last Year 1 06/16/2023 Sex and Gender Information Value Date Recorded Sex Assigned at Female 01/23/2020 8:19 PM CDT Gender Identity Female 01/23/2020 8:19 PM CDT Sexual Orientation Straight 01/23/2020 8: 19 PM CDT Obstetrics History Last Filed Vital Signs Vital Sign Reading Time Taken Comments Blood Pressure 123/79 10/08/2023 10:25 AM CDT Pulse 84 10/08/2023 10:25 AM CDT Temperature 36.2 ??C (97.1 ??F) 10/08/2023 10:25 AM C DT Respiratory Rate 14 10/08/2023 10:25 AM CDT Oxygen Saturation 95% 10/08/2023 10:25 AM CDT Inhaled Oxygen Concentration - - Weight 66.7 kg (147 lb) 10/08/2023 10:25 AM CDT Height 167.6 cm (5' 5.98) 10/08/2023 10:25 AM C DT Body Mass Index 23.74 10/08/2023 10:25 AM CDT Plan of Treatment Upcoming Encounters Date Type Department Care Team (Late st Contact Info) Description 02/03/2024 7:45 AM CDT Telemedicine [facility] [address] [place] [address] Elayne Penaloza MD [address] [place] [address] Health Maintenance Due Date Last Done Comments Medicare Wellness for age 65+ 07/24/2023, 04/19/2021, 03/28/2020 COVID-19 vaccine series ( season) 2023 04/21/2023, 07/23/2022, 02/06/2022, Additional history exists Influenza for age 65+ 03/14/2024 04/08/2023 , 04/12/2022, 04/19/2021, Additional history exists Low Dose CT (for lung CA) ag e 50-80 05/01/2024 05/01/2023, 04/30/2022, 04/27/2021, Additional history exists Depression screening for age 12+ 07/25/2024 07/25/2023, 05/21/2023, 04/04/2023, Additional history exists BMI (ht and wt on same day) for age 18+ 10/07/2024 10/08/2023, 06/16/2023, 12/27/2022, Additional history exists CT Colonography for age 45-75 10/30/2027 10/29/2022 Lipids for age 45-75 01/12/2028 01/11/2023, 01/28/2022, 08/10/2020, Additional history exists Tetanus booster 02/19/2031 02/19/2021, 08/21/2010 Tdap Completed 08/21/2010 Pneumococcal series for age 65+ Completed 06/27/2016, 05/16/2015, 05/23/2011 Hepatitis C screening for ag e 18-79 Completed 03/28/2020 DEXA/DXA scan for age 65+ Completed 2019, 06/27/2016, 08/19/2013, Additional history exists Zoster (shingles) series for age 50+ Completed 10/17/2020, 04/24/2020, 06/09/2013 Fecal testing non-DNA (FIT,FOBT,iFOBT) for age 45-75 Discontinued 05/14/2021, 04/04/2020, 06/15/2018, Additional history exists Fecal testing sDNA-FIT (Cologuard) for age 45-75 Discontinued 08/08/2022 Goals Goal Patient Goal Type Associated Problems Recent Progress Patient-Stated? Author ACP-Patient will have ACP on file Diet No Linn Walsh RN DEPRESSION-PATIENT PARTICIPATES IN BEHAVIORAL ACTIVATION, SMALL GOAL SETTING Diet No Linn Walsh RN WORK-PATIENT WILL WORK TOWARDS DESIRED EMPLOYMENT SITUATION Diet No Linn Walsh RN RESPIRATORY STABILITY-PATIENT WILL ACHIEVE OR MAINTAIN IMPROVED BREATHING Diet No Linn Walsh RN STRESS-PATIENT WILL IDENTIFY STRESS AND WORK TO REDUCE IT Diet No Linn Walsh RN TOBACCO-PATIENT WILL HAVE A SYSTEM/PLAN IN PLACE TO QUIT SMOKING Diet No Linn Walsh RN Procedures Procedure Name Priority Date/Time Associated Diagnosis Comments CT CHEST SCREENING LOW DOSE WO CONTRAST Routine 05/01/2023 11:18 AM CDT Encounter for screening for lung cancer Former smoker LIPID PANEL Early AM 01/11/2023 2:[address] ABDOMEN PELVIS COLONOGRAPHY DIAGNOSTIC W Today 10/29/2022 6:58 PM CDT Positive colorectal cancer screening using DNA-based stool test Procedure and treatment not carried out for other reasons SDNA-FIT EXTERNAL (COLOGUARD) Routine 08/08/2022 4:55 PM PRACTICE DIRECTOR Screening for colon cancer OCCULT BLOOD IFOBT STOOL Routine 05/14/2021 4:11 PM CDT Screening for colon cancer XR DXA BONE DENSITY 2 SITES AXIAL Routine 06/22/2020 10:53 AM PRACTICE DIRECTOR Asymptomatic postmenopausal state ANTI HCV Routine 03/28/2020 9:50 AM CDT Encounter for hepatitis C screening test for low risk patient from Last 3 Months or Most Recently Relevant to Health Maintenance Results * CT CHEST SCREENING LOW DOSE WO CONTRAST (05/01/2023 11:18 AM CDT) Anatomical Region Laterality Modality Computed Tomogra phy Impressions 05/03/2023 8:16 AM CDT Negative for lung cancer screening purposes. LUNG-RADS CATEGORY 2: Benign. (<1% risk of malignancy) -Perifissural nodule(s): <10 mm -Solid nodule(s): <6 mm on baseline screening; or new nodule <4 mm RADIOLOGIST RECOMMENDATION: Continue annual screening with low-dose CT chest in 12 months. Please note that all CT scans at this facility use dose modulation, iterative reconstruction and/or weight-based dosing when appropriate to reduce radiation dose to as low as reasonably achievable. ?? Dictated by: Janusz Garrett MD @05/02/2023 3:51:33 PM CRL:rcd Narrative 05/03/2023 8:16 AM CDT For Patients: As a result of the Century Cures Act, medical imaging exams and procedure reports are released immediately into your electronic medical record. ??You may view this report before your referring provider. ?? If you have questions, please contact your health care provider. CT CHEST SCREENING LOW-DOSE WITHOUT CONTRAST, 05/01/2023 INDICATION: Lung cancer screening. History of smoking. Moderate COPD. TECHNIQUE: Low-dose lung cancer screening noncontrast CT chest. Dose-reduction techniques were used. COMPARISON: April 30, 2022. FINDINGS: NODULES: There are two stable RIGHT lower lobe micronodules, image 88 series 5, image 99 series 5, entirely unchanged. No new intrapulmonary nodules. LUNGS AND PLEURA: Minor emphysematous changes. Linear fibrosis in the anteromedial RIGHT upper lobe of the lung and lingular LEFT upper lobe. MEDIASTINUM: Normal. CORONARY ARTERY CALCIFICATION: Trace vascular calcification in the LEFT anterior descending artery on image 82 series 3. LIMITED UPPER ABDOMEN: Moderate-sized esophageal hiatal hernia, similar to the prior study. MUSCULOSKELETAL: Mild degenerative disc disease in the lower thoracic and lumbar spine, best appreciated on the detective bureau chief images. Degenerative arthritis of the shoulders. Peg JULIEN CT * LIPID PANEL (01/11/2023 2:23 AM CDT) [facility] CHOLESTEROL,TOTAL 168 100 - 199 mg/dL 01/11/2023 3:01 AM T [facility] [employer] Comment: Cholesterol, Total Reference Ranges Desirable <200 mg/dL Borderline 200-239 mg/dL High >=240 mg/dL TRIGLYCERIDES 47 <150 mg/dL 01/11/2023 3:01 AM CDT [facility] [employer] [facility] HDL CHOLESTEROL 58 >40 mg/dL 3:01 AM T [facility] [employer] NON-HDL CHOLESTEROL 110 <145 mg/dl 01/11/2023 3:01 AM CDT [facility] [employer] CHOL/HDL RATIO 2.90 <4.50 01/11/2023 3:01 AM CDT [facility] LDL CHOLESTEROL 101 <=130 mg/dL 01/11/2023 3:01 AM T [facility] VLDL CHOLESTEROL 9 <=30 mg/dL 01/11/2023 3:01 AM CDT [facility] PROVIDER ORDERED STATUS RANDOM 01/11/2023 3:01 AM CDT [facility] Blood BLOOD SPECIMEN / Unknown Non-Lab Venipuncture / Unknown 01/11/2023 2:23 AM CDT 01/11/2023 2:28 AM CDT Francesca Hobson [facility] CHEMISTRY [facility] [address] [place] [address], [place] * CT ABDOMEN PELVIS COLONOGRAPHY DIAGNOSTIC W (10/29/2022 6:58 PM CDT) Anatomical Region Laterality Modality Abdomen, Pelvis Computed Tomogra phy 10/29/2022 6:58 PM CDT Impressions 10/30/2022 8:33 AM CDT IMPRESSION: 1. ??Extremely tortuous redundant colon. 2. ??Colon otherwise negative. 3. ??Moderate size sliding esophageal hiatal hernia. Narrative 10/30/2022 8:33 AM CDT EXAM: CT COLONOGRAPHY LOCATION: [facility] DATE/TIME: 10/29/2022 6:58 PM CDT INDICATION: Incomplete colonoscopy due to redundant colon and retained stool.. Colonoscopy reached the colon. COMPARISON: Colonoscopy report from earlier today. TECHNIQUE: Prone and supine CT abdomen and pelvis with air insufflation per rectum, with image postprocessing. Oral contrast. Dose reduction techniques were used. CONTRAST: 30 ml GASTROGRAFIN ?Discarded: 0 ml GASTROGRAFIN FINDINGS: COLON: Extremely tortuous and redundant colon throughout. Mild residual stool. Colon otherwise negative. No colonic perforation. All segments well seen. C Score: C1 Note: CT colonography is not intended for the detection of diminutive polyps (i.e. polyps less than or equal to 5mm), the presence of which will not likely change booth attendant of the patient. ADDITIONAL FINDINGS: Moderate size sliding esophageal hiatal hernia. No other incidental findings. E Score: E3, Likely unimportant, incompletely characterized Procedure Note Janusz De Anda MD - 10/30/2022 EXAM: CT COLONOGRAPHY LOCATION: [facility] DATE/TIME: 10/29/2022 6:58 PM CDT INDICATION: Incomplete colonoscopy due to redundant colon and retained stool.. Colonoscopy reached the colon. COMPARISON: Colonoscopy report from earlier today. TECHNIQUE: Prone and supine CT abdomen and pelvis with air insufflation per rectum, with image postprocessing. Oral contrast. Dose reduction techniques were used. CONTRAST: 30 ml GASTROGRAFIN Discarded: 0 ml GASTROGRAFIN FINDINGS: COLON: Extremely tortuous and redundant colon throughout. Mild residual stool. Colon otherwise negative. No colonic perforation. All segments well seen. C Score: C1 Note: CT colonography is not intended for the detection of diminutive polyps (i.e. polyps less than or equal to 5mm), the presence of which will not likely change booth attendant of the patient. ADDITIONAL FINDINGS: Moderate size sliding esophageal hiatal hernia. No other incidental findings. E Score: E3, Likely unimportant, incompletely characterized IMPRESSION: IMPRESSION: 1. Extremely tortuous redundant colon. 2. Colon otherwise negative. 3. Moderate size sliding esophageal hiatal hernia. Erasmo Eaton MD CT * (ABNORMAL) SDNA-FIT EXTERNAL (COLOGUARD) (08/08/2022 4:55 PM PRACTICE DIRECTOR) NONINV COLON CA DNA+OCC BLD SCRN STL-IMP Positive( A) Negative 08/16/2022 4:18 PM PRACTICE DIRECTOR [employer] (CLIA #:[id number]) Comment: POSITIVE TEST RESULT. A positive Cologuard result should be followed with a colonoscopy or visual examination of the colon. The normal value (reference range) for this assay is negative. TEST DESCRIPTION: Composite algorithmic analysis of stool DNA-biomarkers with hemoglobin immunoassay. ?? Quantitative values of individual biomarkers are not reportable and are not associated with individual biomarker result reference ranges. Cologuard is intended for colorectal cancer screening of adults of either sex, 45 years or older, who are at average-risk for colorectal cancer (CRC). Cologuard has been approved for use by the U.S. FDA. The performance of Cologuard was established in a cross sectional study of average-risk adults aged 50-84. Cologuard performance in patients ages 45 to 49 years was estimated by sub-group analysis of near-age groups. Colonoscopies performed for a positive result may find as the most clinically significant lesion: colorectal cancer [4.0%], advanced adenoma (including sessile serrated polyps greater than or equal to 1cm diameter) [20%] or non- advanced adenoma [31%]; or no colorectal neoplasia [45%]. These estimates are derived from a prospective cross-sectional screening study of 10,000 individuals at average risk for colorectal cancer who were screened with both Cologuard and colonoscopy. (Yomi Jones al, N Engl J Med 2014;370(14):8002-9491.) Cologuard may produce a false negative or false positive result (no colorectal cancer or precancerous polyp present at colonoscopy follow up). A negative Cologuard test result does not guarantee the absence of CRC or advanced adenoma (pre-cancer). The current Cologuard screening interval is every 3 years. ([place] [employer] Society and U.S. Multi-Society Task Force). Cologuard performance data in a 10,000 patient pivotal study using colonoscopy as the reference method can be accessed at the following location: [email or web address]/results. Additional description of the Cologuard test process, warnings and precautions can be found at www.cologuard.com. Stool specimen (specimen) (Rectum) 08/08/2022 4:55 PM PRACTICE DIRECTOR 08/10/2022 1:06 PM PRACTICE DIRECTOR Shivani JULIEN URINE [employer] (CLIA #:[id number]) [address] [place] [address], * OCCULT BLOOD IFOBT STOOL (05/14/2021 4:11 PM CDT) STOOL BLOOD ,IFOBT Negative Negative 05/18/2021 1:19 PM CDT [facility] Stool STOOL SPECIMEN / Unknown Non-Blood / Unknown 05/14/2021 4:11 PM CDT 05/16/2021 4:11 PM CDT Shivani JULIEN LABORATORY [facility] [address] [place] [address], * (ABNORMAL) XR DXA BONE DENSITY 2 SITES AXIAL (06/22/2020 10:53 AM PRACTICE DIRECTOR) Anatomical Region Laterality Modality Spine, HIPS, HIPL, HIPR Other Narrative 06/26/2020 4:46 PM PRACTICE DIRECTOR Please see scanned document for results of this study. Shivani JULIEN DEXA * ANTI HCV (03/28/2020 9:50 AM CDT) HEPATITIS C ANTIBODY Non-React sasha Non-React sasha 03/28/2020 6:34 PM CDT [facility] Comment:Antibodies to HCV no t detected; does not exclude the possibility of exposure to HCV. Blood BLOOD SPECIMEN / Unknown Venipuncture / Unknown 03/28/2020 9:50 AM CDT 03/28/2020 9:50 AM CDT Shivani JULIEN SEND OUTS [facility] 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
--- OUTSIDE RECORDS SUMMARY | 2024-01-25 17:28 | XMS_ITS | Clinical Summary ---
Author Organization [facility] Address [address] [address] Phone Care Team Providers Care Clinical Implementation Specialist Name Role Phone Elsewhere, Pcp Primary Care Provider Unavailabl e Allergies Active Allergy Reactions Criticality Noted Date Comments Azithromycin Other Low 06/20/2023 Inteferes with taking Seoquel Erythromycin Other Low 06/20/2023 GI upset Levofloxacin Hives High 06/20/2023 Medications Medication Sig Dispensed Refills Start Date End Date Status acetaminophen (Tylenol) 500 MG tablet Take 1,000 mg by mouth every six hours as needed for Pain. Limit acetaminophen to 4000 mg per day from all sources. Active albuterol HFA (Proair HFA, Ventolin HFA) 108 (90 Base) MCG/ACT inhalation aerosol Inhale 1-2 Puffs into the lungs every four hours as needed for Shortness of Breath. Shake before using. Active ipratropium-albute rol (Duo-Neb) 0.5-2.5 (3) MG/3ML Solution Inhale 3 mL into the lungs one time a day. Increase up to 4 times daily as needed Active atorvaSTATin (Lipitor) 40 MG tablet Take 40 mg by mouth at bedtime. Active buPROPion XL (Wellbutrin XL) 300 MG 24 hour extended release tablet Take 300 mg by mouth every morning. Do not crush. Active clotrimazole (Mycelex) 10 MG trocheIndications: Infection Take 10 mg by mouth four times a day as needed. Indications: Infection Active GLUCOSAMINE-FISH OIL-EPA-DHA OR Take 1 Capsule by mouth one time a day. Active fluvoxaMINE (Luvox) 100 MG tablet Take 100 mg by mouth two times a day. Active Fluvoxamine Maleate 100 MG Capsule Extended Release 24 Hour Take 1 Capsule by mouth two times a day. Take with 100 mg tab for total of 150 mg twice daily Active glucosamine-chondr oitin 500-400 MG capsule Take 1 Capsule by mouth one time a day. Active Multiple Vitamin (therapeutic multivitamin) tablet Take 1 Tablet by mouth one time a day. Active omeprazole (PriLOSEC) 20 MG delayed-release capsule Take 20 mg by mouth one time a day. Take before meals. Do not crush. Active QUEtiapine (SEROquel) 400 MG tablet Take 400 mg by mouth at bedtime. Active budesonide-formote rol (Symbicort) 160-4.5 MCG/ACT aerosol inhaler Inhale 2 Puffs into the lungs two times a day. Active triamcinolone acetonide (Kenalog) 0.5 % cream Apply 1 g topically two times a day as needed (eczema). Apply to affected area eczema Active hydrOXYzine HCl (Atarax) 10 MG tablet Take 1 Tablet by mouth three times a day as needed for Other (muscle spasms). 40 Tablet 06/26/2023 Active sennosides-docusat e sodium (Senokot-S) 8.6-50 MG oral tablet Take 1 Tablet by mouth one time a day. 40 Tablet 06/26/2023 Active aspirin EC 81 MG tablet Take 1 Tablet by mouth two times a day (breakfast and supper). Do not split or crush. 60 Tablet 06/27/2023 Active aspirin (Aspirin 81) 81 MG chewable tablet Chew and swallow 1 Tablet one time a day. Resume prior to admission once daily dosing after completion of post-operative twice daily dosing for 4 weeks. 06/27/2023 Active Active Problems Problem Noted Date Diagnosed Date S/P reverse total shoulder arthroplasty, left Surgical History Surgery Date Site/Laterality Comments TOTAL KNEE REPLACEMENT 07/14/2014 - 07/13/2015 Left SHOULDER ARTHROPLASTY 06/26/2023 Shoulder/Left Procedure: Left reverse total shoulder arthroplasty; Surgeon: Austin Nevarez MD; Location: [facility] [place] [facility] Medical devices from this surgery are in the Medical Devices section. Social History Tobacco Use Types Packs/Day Years Used Date Smoking Tobacco: Never Smokeless Tobacco: Never Tobacco Cessation:Counseling Given: Not Answered Alcohol Use Standard Drinks/Week Comments Never 0 (1 standard drink = 0.6 oz pur e alcohol) EH IP Custom IPV Answer Date Recorded Do you feel UNSAFE in any of your personal relationships with your family members or any other acquaintances? 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 Sexual Orientation Not on file Obstetrics History Last Filed Vital Signs Vital Sign Reading Time Taken Comments Blood Pressure 153/122 06/27/2023 9:09 AM HYDRO STATION SUPERVISOR Pulse 86 06/27/2023 9:09 AM HYDRO STATION SUPERVISOR Temperature 36.7 ??C (98 ??F) 06/27/2023 9:09 AM HYDRO STATION SUPERVISOR Respiratory Rate 16 06/27/2023 9:09 AM HYDRO STATION SUPERVISOR Oxygen Saturation 91% 06/27/2023 9:09 AM HYDRO STATION SUPERVISOR Inhaled Oxygen Concentration - - Weight 66.5 kg (146 lb 8 oz) 06/26/2023 6:36 AM HYDRO STATION SUPERVISOR Height 167.6 cm (5' 6) 06/26/2023 6:36 AM HYDRO STATION SUPERVISOR Body Mass Index 23.65 06/26/2023 6:36 AM HYDRO STATION SUPERVISOR Plan of Treatment Health Maintenance Due Date Last Done Comments CT Colonography 1948 Cologuard 1948 Colonoscopy 1948 Colorectal Cancer Screening 1948 FIT/FOBT 1948 Sigmoidoscopy 1948 PERTUSSIS (Standing Order) 1967 TETANUS (Standing Order) 1967 Shingrix (Zoster recombinant ) vaccine (Standing Order) (1 of 2) 1998 RSV Vaccination (60+ yrs) (Abrysvo/Arexvy) (1 - 1-dose 60+ series) 2008 DXA,FEMALES AGE 65 OR GREATER 2013 Pneumococcal Vaccine: 65+ yr s (Standing Order) (1 of 1 - PCV) 2013 Influenza Vaccine Seasonal (Standing Order) (#1) 2024 HPV Vaccine (Standing Order) Aged Out No longer eligible based on patient's age to complete this topic Hepatitis B Vaccine (Standin g Order) Aged Out No longer eligible b ased on patient's age to complete this topic Medical Devices Implanted Type Area Pattern Repair Person Device Identifier Shelf Expiration Date Model / Serial / Lot Baseplate Glenosphere Mini 25mm Tpr Adap - [id number] Implanted:Qty: 1 on 06/26/2023 at [facility] Left: Shoulder BIOMET [id number] 05/21/2033 [id number] / NA / [id number] Tray Humeral Mini +0mm Tpr Offset 40mm - [id number] Implanted:Qty: 1 on 06/26/2023 at [facility] Left: Shoulder JORDYN [id number] 05/26/2033 [id number] / NA / [id number] Screw Central 6.5 X 20mm - [id number] Implanted:Qty: 1 on 06/26/2023 at [facility] Left: Shoulder BIOMET [id number] 05/14/2033 [id number] / NA / [id number] Screw Fixed Locking 4.75 X 25mm - [id number] Implanted:Qty: 1 on 06/26/2023 at [facility] Left: Shoulder BIOMET [id number] 03/19/2033 [id number] / NA / [id number] Screw Fixed Locking 4.75 X 15mm - [id number] Implanted:Qty: 1 on 06/26/2023 at [facility] Left: Shoulder BIOMET [id number] 05/21/2033 [id number] / NA / [id number] Screw Fixed Locking 4.75 X 15mm - [id number] Implanted:Qty: 1 on 06/26/2023 at [facility] Left: Shoulder BIOMET [id number] 05/21/2033 [id number] / NA / [id number] Screw Fixed Locking 4.75 X 30mm - [id number] Implanted:Qty: 1 on 06/26/2023 at [facility] Left: Shoulder BIOMET [id number] 04/29/2033 [id number] / NA / [id number] Glenosphere Versa-Dial 36mm +3mm - [id number] Implanted:Qty: 1 on 06/26/2023 at [facility] Left: Shoulder BIOMET [id number] 11/22/2032 [id number] / NA / [id number] Comprehensive Shoulder System Primary Shoulder Stem Micro Length Porous Plasma 15mm 55mm Long Implanted:Qty: 1 on 06/26/2023 at [facility] Left: Shoulder 06/05/2031 [id number] / NA / [id number] Bearing Humeral Prolong 36mm +3mm - [id number] Implanted:Qty: 1 on 06/26/2023 at [facility] Left: Shoulder JORDYN [id number] 03/31/2028 [id number] / NA / [id number] Advance Directives For more information, please contact: [phone] Documents on File Type Date 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
== END 2024-01-25 18:00 | disposition home or self-care (01) ==
PROVIDERS: Emergency Provider Emergency Medicine Emergency Medical Services; PCP Student in an Organized Health Care Education/Training Program
DX: S80.01XA Contusion of right knee, initial encounter (principal)
CPT/HCPCS: 73562; 99283; 99284

== ENCOUNTER 2024-04-09 17:45 | Outpatient (CLI) | payer MEDICARE, BC, SELFPAY ==
--- OUTSIDE RECORDS SUMMARY | 2024-04-14 07:33 | XMS_ITS | Clinical Summary ---
Author Organization [employer] [facility] [employer] [facility] Address [place], [place] [address] Care Team Providers Care Decommissioning Well Site Manager Name Role Phone Peg Maravilla Primary Care Provider [phone] Allergies Active Allergy Reactions Criticality Noted Date Comments Azithromycin Other - Describe In Comment Field 06/09/2013 Interferes with taking Seroquel Erythromycin GI Upset 05/06/2007 Levofloxacin Hives 05/15/2011 Medications Medication Sig Dispensed Refills Start Date End Date Status MULTIVITAMIN TAB Take 1 Tablet by mouth once daily. Contains 0.4 mg of Folic Acid. 0 05/06/2007 Active phototherapy light boxIndications:Peng veronica depressive disorder, recurrent episode, unspecified As directed. For home use. 1 unit 0 08/07/2011 Active glucosamine-chond roitin, 500-400 mg, (COSAMIN DS 500/400) 500-400 mg cap Take 1 Capsule by mouth once daily. Taking 1500 mg daily 0 01/18/2014 Active Fish Oil-DHA-EPA 1,200-144-216 mg cap Take 1 Capsule by mouth once daily. 0 01/18/2014 Active NebulizerIndicati ons:COPD, moderate (HC) Nebulizer, neb kit, neb cup and mask. Medication: Duoneb For home use. Length of need for Medicare patients: lifetime. Diagnosis 496 COPD 1 Device 0 04/08/2014 Active acetaminophen (TYLENOL EXTRA STRGTH) 500 mg tablet Take 1,000 mg by mouth every 6 hours if needed for Pain or Temp > (Specify). 01/27/2015 Active albuterol HFA (ProAir HFA) 90 mcg/actuation inhalerIndication s:COPD, moderate (HC) Inhale 1-2 Puffs by mouth every 4 hours if needed for Shortness Of Breath. 8.5 g 2 07/23/2022 Active clotrimazole (MYCELEX MERCEDEZ) 10 mg mercedez Dissolve 10 mg in the mouth 4 times daily if needed. Active aspirin chewable 81 mg chewable tabletIndications :Acute HFrEF (heart failure with reduced ejection fraction) (HC) Chew 1 Tablet (81 mg) by mouth once daily. 30 Tablet 3 01/12/2023 Active budesonide-formot Nita (Symbicort) 160-4.5 mcg/actuation (160-4.5 mcg each actuation) inhalerIndication s:COPD, moderate (HC) INHALE TWO PUFFS BY MOUTH TWICE DAILY 30.6 g 4 03/18/2023 Active LORazepam (ATIVAN) 0.5 mg tabIndications:Ge neralized anxiety disorder Take 1 Tablet (0.5 mg) by mouth once daily if needed for Anxiety. 15 Tablet 04/02/2023 Active triamcinolone 0.5% (ARISTOCORT) 0.5 % creamIndications: Chronic eczema Apply topically to affected area(s) two times daily. To eczema areas as needed. 15 g 1 10/13/2023 Active omeprazole (PRILOSEC) 20 mg Delayed-Release capsuleIndication s:Chronic GERD Take 1 Capsule (20 mg) by mouth once daily before a meal 90 Capsule 2 10/22/2023 Active buPROPion (WELLBUTRIN XL) 300 mg Extended-Release tabletIndications :Major depressive disorder, recurrent, in full remission (HC) Take 1 Tablet (300 mg) by mouth once daily in the morning. 90 Tablet 1 02/03/2024 Active fluvoxaMINE (LUVOX) 100 mg tabletIndications :Major depressive disorder, recurrent, in full remission (HC),Generalized anxiety disorder,Obsessiv e-compulsive disorder, unspecified type TAKE ONE TABLET IN THE MORNING AND 1 TABLET AT BEDTIME, 180 Tablet 02/03/2024 Active fluvoxaMINE (LUVOX) 50 mg tabletIndications :Major depressive disorder, recurrent, in full remission (HC) Take 1 Tablet (50 mg) by mouth two times daily. Take with 100 mg tab for total of 150 mg twice daily. 180 Tablet 1 02/03/2024 Active QUEtiapine (SEROQUEL) 400 mg tabletIndications :Major depressive disorder, recurrent, in full remission (HC),Generalized anxiety disorder,Obsessiv e-compulsive disorder, unspecified type Take 1 Tablet by mouth at bedtime. 90 Tablet 1 02/03/2024 Active atorvastatin (LIPITOR) 40 mg tabletIndications :Acute HFrEF (heart failure with reduced ejection fraction) (HC) Take 1 Tablet (40 mg) by mouth at bedtime. Further refills at upcoming appointment on March 17, 2024. 90 Tablet 02/11/2024 Active albuterol-ipratro pium (DUONEB) (2.5-0.5 mg) in 3 mL NEBULIZATION solutionIndicatio ns:COPD, moderate (HC) Use one nebulizer once daily. Increase up to four times daily as needed. 270 mL 1 03/22/2024 Active albuterol-ipratro pium (DUONEB) (2.5-0.5 mg) in 3 mL NEBULIZATION solutionIndicatio ns:COPD, moderate (HC) Use one nebulizer once daily. Increase up to four times daily as needed. 270 mL 3 03/19/2023 03/22/20 24 Discontinued Active Problems Patient Care Coordination No te Formatting of this note migh t be different from the original. My Care Team Patient Care Team: Dr. Adonis Watts as PCP - General - [phone] Linn Walsh household cook -[facility] (Registered Nurse)[phone] My Emergency Plan If you are having the following symptoms, call your doctor's office at [phone]. Ask for the triage nurse and tell [...] think clearly. Please Call Dr. 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 ANAYA Segura .................... 06/17/2023 1:31 PM Major depressive disorder, recurrent, in full re mission 08/02/2020 Pulmonary nodule, right 03/30/2020 Overview (03/30/2020): Two nodules, right lower lobe. CT done Mar 2020. Repeat in one year. Left mid foot arthritis 11/10/2014 Osteopenia 08/23/2013 Overview (06/28/2020): Bone density done at [facility]. Repeat Aug 2015. Bone density June 2016 osteopenia. Repeat 3-5 years. Bone density June 2020, osteopenia, worsening. Repeat 3-5 years. Knee osteoarthritis 11/27/2012 Acute gastric ulcer with hem orrhage, without mention of obstruction 06/18/2012 Overview (09/17/2013): EGD 06/2012 gastritis with bleeding, repeat EGD in 3 months EGD 09/2013 no ulcer, normal Right talonavicular arthritis 04/23/2012 OCD (obsessive compulsive disorder) 07/03/2011 Alcohol abuse, in remission 07/03/2011 Generalized anxiety disorder 06/04/2011 Encounter for long-term (current) use of other m edications 06/04/2011 Overview (06/04/2011): Benzodiazepine. No contract. No evidence of misuse; ok to fill monthly unless this changes. ACP (advance care planning) 05/31/2011 Overview (05/31/2011): Patient has identified Health Care Agent(s): No Add Health Care Agents: No Patient has Advance Care Plan Documents (Health Care Directive, POLST): No, senior benefits manager to review with patient . Patient has identified Specific Treatment Preferences: No Linn Walsh RN .................... 05/31/2011 2:29 PM Specific limits to treatment preferences NOT identified: ASSUME FULL TREATMENT. 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 Routine general medical exam ination at a health care facility 08/21/2010 08/16/2011 Overview (08/21/2010): Gets Metal Spinner services and Mammogram at [place]. 08/21/2010 Encounters Date Type Department Care Team Description 03/24/2024 Telephone [facility] [address] [place] [address] Elayne Penaloza MD Prior Authorization (fluvoxaMINE (LUVOX) 100 mg tablet PA NOT NEEDED) 03/23/2024 Orders Only [facility] [address] [place] [address] Peg Maravilla PA 1 scan: (1-Ord) [facility]-EKG-03/22/24 03/23/2024 Telephone [facility] [address] [facility] [place] [address] Peg Maravilla PA Follow Up (ekg) 03/22/2024 10:45 AM CDT Preop Visit [facility] [address] [place] [address] Peg Maravilla PA Preoperative Exam (03/25/24 /Reverse should replacement Right side/[facility]- [facility]/Dr. Barrera/[phone]) 03/22/[address] [place] [address] Elayne Penaloza MD Form 03/22/2024 Travel 03/20/2024 Travel 03/17/2024 11:00 AM CDT Office Visit [facility] at [address] [phone] Hubert Blanton MD Follow Up 03/17/[address] [facility] [place] [address] Peg Maravilla PA Refill Request (Albuterol-ipratropium ) 03/17/2024 Travel 02/11/[address] [address] Hubert Blanton MD Refill Request (atorvastatin) 02/10/2024 11:45 AM CDT Orders [place] [address] [place] [address] Lab, [facility] Lab 02/10/2024 Travel 02/03/2024 7:45 AM CDT Telemedicine [address] [place] [address] Elayne Penalzoa MD Telehealth; Medication Management (Things are going really good) 02/02/2024 Travel from Last 3 Months Immunizations Name Administration Dates Next Due AMB INFLUENZA IIV3 (AGE 65+ YRS) PF (Flu Clinic Only) 06/12/2018 AMB Influenza, IIV4 PF (=>6 mos Flulaval,Fluzone Fluarix)(Flu Clinic Only) 03/31/2014 COVID-19 vaccine (Netasq-Bio NTech 30mcg/0.3mL) 12YO+ BIVALENT PF, MDV 07/23/2022 COVID-19 vaccine (Pfizer-Bio NTech 30mcg/0.3mL) 12YO+ ZAHIRA-SUCROSE PF, MDV 02/06/2022 COVID-19 vaccine ([employer]Bio NTech 30mcg/0.3mL) PF, MDV 04/19/2021,10/03/2020,09/12/2020 Influenza, High-dose Inactivated 04/03/2016,1109/2014 Influenza, High-dose Quadriv alent Inactivated 04/08/2023 Influenza, [...] Answer Date Recorded PHQ-2 TOTAL SCORE 0 02/02/2024 Social Connections Answer Date Recorded Frequency of [...] Sign Reading Time Taken Comments Blood Pressure 105/68 03/22/2024 10:57 AM CDT Pulse 77 03/22/2024 10:57 AM CDT Temperature 36.6 ??C (97.8 ??F) 03/22/2024 10:57 AM C DT Respiratory Rate 16 03/22/2024 10:57 AM CDT Oxygen Saturation 97% 03/22/2024 10:57 AM CDT Inhaled Oxygen Concentration - - Weight 67.4 kg (148 lb 9.6 oz) 03/22/2024 10:57 AM CDT Height 167.5 cm (5' 5.95) 03/22/2024 10:57 AM C DT Body Mass Index 24.02 03/22/2024 10:57 AM CDT Plan of Treatment Upcoming Encounters Date Type Department Care Team (Late st Contact Info) Description 08/09/2024 8:45 AM AQUACULTURE FARMER Office Visit [facility] [address] [place] [address] Elayne Penaloza MD [address] [place] [address] Health Maintenance Due Date Last Done Comments RSV vaccine for adults or (1 - 1-dose 75+ series) 2023 Medicare Wellness for age 65+ 07/24/2023, 04/19/2021, 03/28/2020 COVID-19 vaccine series ( season) 2024 04/21/2023, 07/23/2022, 02/06/2022, Additional history exists Influenza for age 65+ 03/14/2024 04/08/2023 , 04/12/2022, 04/19/2021, Additional history exists Low Dose CT (for lung CA) ag e 50-80 05/01/2024 05/01/2023, 04/30/2022, 04/27/2021, Additional history exists Depression screening for age 12+ 02/02/2025 02/03/2024, 02/02/2024, 07/25/2023, Additional history exists BMI (ht and wt on same day) for age 18+ 03/22/2025 03/22/2024, 10/08/2023, 06/16/2023, Additional history exists CT Colonography for age 45-75 10/30/2027 10/29/2022 Lipids for age 45-75 02/09/2029 02/10/2024, 01/11/2023, 01/28/2022, Additional history exists Tetanus booster 02/19/2031 02/19/2021, [...] ACP-Patient will have ACP on file Diet Linn Ragland RN DEPRESSION-PATIENT PARTICIPATES IN BEHAVIORAL ACTIVATION, SMALL GOAL SETTING Diet Linn Ragland RN WORK-PATIENT WILL WORK TOWARDS DESIRED EMPLOYMENT SITUATION Diet Linn Ragland RN RESPIRATORY STABILITY-PATIENT WILL ACHIEVE OR MAINTAIN IMPROVED BREATHING Diet Linn Ragland RN STRESS-PATIENT WILL IDENTIFY STRESS AND WORK TO REDUCE IT Diet Linn Ragland RN TOBACCO-PATIENT WILL HAVE A SYSTEM/PLAN IN PLACE TO QUIT SMOKING Diet Linn Ragland RN Procedures Procedure Name Priority Date/Time Associated Diagnosis Comments WI READING EKG - NO CHARGE, COMP ONLY Routine 03/23/2024 10:07 AM CDT Preop examination EKG 12 LEAD Routine 03/23/2024 10:06 AM CDT Preop examination HEMOGLOBIN Routine 03/22/2024 11:35 AM CDT Preop examination BASIC METABOLIC PANEL Routine 03/22/2024 11:35 AM CDT Preop examination LIPID PANEL W REFLEX MEASURED LDL Routine 02/10/2024 11:52 AM CDT Other mcc (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 therapy HEMOGLOBIN A1C Routine 02/10/2024 11:52 AM CDT Other intermission coordinator (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 therapy CT CHEST SCREENING LOW DOSE WO CONTRAST Routine 05/01/2023 11:18 AM CDT Encounter for screening for lung cancer Former smoker CT ABDOMEN PELVIS COLONOGRAPHY DIAGNOSTIC W Today 10/29/2022 6:58 PM CDT Positive colorectal cancer screening using DNA-based stool test Procedure and treatment not carried out for other reasons SDNA-FIT EXTERNAL (COLOGUARD) Routine 08/08/2022 4:55 PM AQUACULTURE FARMER Screening for colon cancer OCCULT BLOOD IFOBT STOOL Routine 05/14/2021 4:11 PM CDT Screening for colon cancer XR DXA BONE DENSITY 2 SITES AXIAL Routine 06/22/2020 10:53 AM AQUACULTURE FARMER Asymptomatic postmenopausal state ANTI HCV Routine 03/28/2020 9:50 AM CDT Encounter for hepatitis C screening test for low risk patient from Last 3 Months or Most Recently Relevant to Health Maintenance Results * WI READING EKG - NO CHARGE, COMP ONLY (03/23/2024 10:07 AM CDT) Peg JULIEN PB - PROVIDER CAMELIA SHI * EKG 12 LEAD (03/23/2024 10:06 AM CDT) Peg JULIEN EKG ORD * HEMOGLOBIN (03/22/2024 11:35 AM CDT) HEMOGLOBIN 12.1 12.0 - 16.0 g/dL 03/22/2024 11:55 AM CDT [facility] [[email or web address]] MCV 93 80 - 100 fL 03/22/2024 11:55 AM CDT [facility] [[email or web address]] Blood BLOOD SPECIMEN / Unknown Venipuncture / Unknown 03/22/2024 11:35 AM CDT 03/22/2024 11:35 AM CDT Peg JULIEN HEMATOLOGY [facility] [[email or web address]] [address] [place] [address], * (ABNORMAL) BASIC METABOLIC PANEL (03/22/2024 11:35 AM CDT) SODIUM 139 136 - 145 mmol/L 03/23/2024 5:03 AM CDT [facility] POTASSIUM 4.4 3.5 - 5.1 mmol/L 03/23/2024 5:03 AM CDT [facility] CHLORIDE 102 98 - 107 mmol/L 03/23/2024 5:03 AM T [facility] CO2,TOTAL 22 22 - 29 mmol/L 03/23/2024 5:03 AM CDT [facility] ANION GAP 15 5 - 18 03/23/2024 5:03 AM T [facility] GLUCOSE 89 70 - 99 mg/dL 03/23/2024 5:03 AM T [facility] CALCIUM 9.0 8.8 - 10.2 mg/dL 03/23/2024 5:03 AM T [facility] BUN 21 8 - 23 mg/dL 03/23/2024 5:03 AM T [facility] CREATININE 1.09(H) 0.50 - 0.90 mg/dL 03/23/2024 5:03 AM T [facility] BUN/CREAT RATIO 19 10 - 20 5:03 AM T [facility] eGFR 53(L) >90 mL/min/1.7 3m2 03/23/2024 5:03 AM T [facility] Comment:As of 2021, eG FR is calculated by the CKD-EPI creatinine equation without race adjustment. ??eGFR can be influenced by muscle mass, exercise, and diet. ??The reported eGFR is an estimation only and is only applicable if the renal function is stable. Blood BLOOD SPECIMEN / Unknown Venipuncture / Unknown 03/22/2024 11:35 AM CDT 03/22/2024 11:35 AM CDT Peg JULIEN [facility] [address] [place] [address], * HEMOGLOBIN A1C SCREENING (02/10/2024 11:52 AM CDT) HEMOGLOBIN A1C SCREENING 6.3 <=6.4 % 02/10/2024 9:54 PM CDT [facility] Blood BLOOD SPECIMEN / Unknown Venipuncture / Unknown 02/10/2024 11:52 AM CDT 02/10/2024 11:[address] [facility] - 02/10/2024 9:54 PM CDT ? (<5.7%) ?Normal ? (5.7% to 6.4%) ? Indicates prediabetes ? (>=6.5%) ? Confirms diabetes Falsely low levels may be seen with: Recent Transfusion, Recent Significant Blood Loss, Hemolytic Diseases, or Falsely elevated levels may be seen with: Untreated Anemias, Splenectomy Elayne Penaloza MD CHEMISTRY [facility] [address] [place] [address], * LIPID PANEL W REFLEX MEASURED LDL (02/10/2024 11:52 AM CDT) CHOLESTEROL,TOTAL 113 100 - 199 mg/dL 02/11/2024 1:19 AM T [facility] Comment: Cholesterol, Total Reference Ranges Desirable <200 mg/dL Borderline 200-239 mg/dL High >=240 mg/dL TRIGLYCERIDES 74 <150 mg/dL 02/11/2024 1:19 AM [facility] HDL CHOLESTEROL 53 >40 mg/dL 1:19 AM [facility] NON-HDL CHOLESTEROL 60 <145 mg/dl 02/11/2024 1:19 AM [facility] CHOL/HDL RATIO 2.13 <4.50 02/11/2024 1:19 AM [facility] LDL CHOLESTEROL 45 <=130 mg/dL 02/11/2024 1:19 AM [facility] VLDL CHOLESTEROL 15 <=30 mg/dL 02/11/2024 1:19 AM CDT [facility] PROVIDER ORDERED STATUS RANDOM 02/11/2024 1:19 AM CDT [facility] Blood BLOOD SPECIMEN / Unknown Venipuncture / Unknown 02/10/2024 11:52 AM CDT 02/10/2024 11:52 AM CDT Elayne Penaloza MD CHEMISTRY [facility] [address] [place] [address], * CT CHEST SCREENING LOW DOSE WO [...] and lumbar spine, best appreciated on the gang punch operator images. Degenerative arthritis of the shoulders. Peg JULIEN CT * CT ABDOMEN PELVIS COLONOGRAPHY DIAGNOSTIC W (10/29/2022 6:58 PM CDT) Anatomical Region Laterality Modality Abdomen, Pelvis Computed Tomogra phy 10/29/2022 6:58 PM CDT Impressions 10/30/2022 8:33 AM CDT IMPRESSION: 1. ??Extremely tortuous redundant colon. 2. ??Colon otherwise negative. 3. ??Moderate size sliding esophageal hiatal hernia. Narrative 10/30/2022 8:33 AM CDT EXAM: CT COLONOGRAPHY LOCATION: [facility] DATE/TIME: 10/29/2022 6:58 PM CDT INDICATION: Incomplete [...] the presence of which will not likely bladder changer of the patient. ADDITIONAL FINDINGS: Moderate size sliding esophageal hiatal hernia. No other incidental findings. E Score: E3, Likely unimportant, incompletely characterized Procedure Note Janusz De Anda MD - 10/30/2022 EXAM: CT COLONOGRAPHY LOCATION: [facility] DATE/TIME: 10/29/2022 6:58 PM CDT INDICATION: Incomplete [...] the presence of which will not likely bladder changer of the patient. ADDITIONAL FINDINGS: Moderate size sliding esophageal hiatal hernia. No other incidental findings. E Score: E3, Likely unimportant, incompletely characterized IMPRESSION: IMPRESSION: 1. Extremely tortuous redundant colon. 2. Colon otherwise negative. 3. Moderate size sliding esophageal hiatal hernia. Erasmo Eaton MD CT * (ABNORMAL) SDNA-FIT EXTERNAL (COLOGUARD) (08/08/2022 4:55 PM AQUACULTURE FARMER) NONINV COLON CA DNA+OCC BLD SCRN STL-IMP Positive( A) Negative 08/16/2022 4:18 PM AQUACULTURE FARMER [facility] (CLIA #:[id number]) Comment: POSITIVE TEST RESULT. A positive Cologuard [...] (Yomi Jones al, N Engl J Med 2014;370(14):7653-6733.) Cologuard may produce a false negative or false positive result (no colorectal cancer or precancerous polyp present at colonoscopy follow up). A negative Cologuard test result does not guarantee the absence of CRC or advanced adenoma (pre-cancer). The current Cologuard screening interval is every 3 years. ([place] Cancer Society and U.S. Multi-Society Task Force). Cologuard performance data in a 10,000 patient pivotal study using colonoscopy as the reference method can be accessed at the following location: www.Discoverables/results. Additional description of the Cologuard test process, warnings and precautions can be found at www.cologuard.com. Stool specimen (specimen) (Rectum) 08/08/2022 4:55 PM AQUACULTURE FARMER 08/10/2022 1:06 PM AQUACULTURE FARMER hSivani JULIEN URINE [facility] (CLIA #:[id number]) [address] [place] [address], * OCCULT BLOOD IFOBT STOOL (05/14/2021 4:11 PM CDT) STOOL BLOOD ,IFOBT Negative Negative 05/18/2021 1:19 PM CDT [facility] Stool STOOL SPECIMEN / Unknown Non-Blood / Unknown 05/14/2021 4:11 PM CDT 05/16/2021 4:11 PM CDT Shivani JULIEN LABORATORY [facility] [address] [place] [address], * (ABNORMAL) XR DXA BONE DENSITY 2 SITES AXIAL (06/22/2020 10:53 AM AQUACULTURE FARMER) Anatomical Region Laterality Modality Spine, HIPS, HIPL, HIPR Other Narrative 06/26/2020 4:46 PM AQUACULTURE FARMER Please see scanned document for results of this study. Shivani JULIEN DEXA * ANTI HCV (03/28/2020 9:50 AM CDT) HEPATITIS C ANTIBODY Non-React sasha Non-React sasha 03/28/2020 6:34 PM CDT [facility] Comment:Antibodies to HCV no t detected; does not exclude the possibility of exposure to HCV. Blood BLOOD SPECIMEN / Unknown Venipuncture / Unknown 03/28/2020 9:50 AM CDT 03/28/2020 9:50 AM CDT Shivani JULIEN SEND OUTS [facility] [address] [place] [address], from Last 3 Months or Most Recently Relevant to Health Maintenance Advance Directives Documents on File Type Date Recorded Patient Customer Marketing Intern Expl anation Healthcare Directive Healthcare Directive 04/17/2020 PATIENT , HEALTHCARE DIRECTIVE, 04/17/2020 * Full Code (Latest Code Status on File) Date Activated Date Inactivated Comments 01/11/2023 1:25 AM 01/12/2023 2:20 PM Question Answer Comments Code Status Discussion: Unable to Assess Preferences, Provider to review later * Full Code Date Activated Date Inactivated Comments 06/14/2011 4:17 PM 06/25/2011 3:02 PM Care Teams Decommissioning Well Site Manager Relationship Specialty Start Date End Date Peg Maravilla [place] [address] [place] [address] PCP - General Physician Director Of Architecture 12/23/22
--- OUTSIDE RECORDS SUMMARY | 2024-04-14 07:33 | XMS_ITS | Clinical Summary ---
Author Organization [facility] Address [address] [address] Phone Care Team Providers Care Assistant Store Director Name Role Phone Elsewhere, Pcp Primary Care [...] shoulder arthroplasty; Surgeon: Austin Nevarez MD; Location: [facility] OR Medical devices from this surgery are [...] file Gender Identity Female 06/25/2023 9:58 AM FIREARMS INSPECTOR Sexual Orientation Not on file Obstetrics History Last Filed Vital Signs Vital Sign Reading Time Taken Comments Blood Pressure 153/122 06/27/2023 9:09 AM FIREARMS INSPECTOR Pulse 86 06/27/2023 9:09 AM FIREARMS INSPECTOR Temperature 36.7 ??C (98 ??F) 06/27/2023 9:09 AM FIREARMS INSPECTOR Respiratory Rate 16 06/27/2023 9:09 AM FIREARMS INSPECTOR Oxygen Saturation 91% 06/27/2023 9:09 AM FIREARMS INSPECTOR Inhaled Oxygen Concentration - - Weight 66.5 kg (146 lb 8 oz) 06/26/2023 6:36 AM FIREARMS INSPECTOR Height 167.6 cm (5' 6) 06/26/2023 6:36 AM FIREARMS INSPECTOR Body Mass Index 23.65 06/26/2023 6:36 AM FIREARMS INSPECTOR Plan of Treatment Health Maintenance Due Date [...] Order) (1 of 1 - PCV) 2013 COVID-19 Vaccine ( - 2022-2 4 season) 2024 Influenza Vaccine Seasonal (Standing Order) (#1) 2024 HPV Vaccine (Standing Order) Aged Out No longer eligible based on patient's age to complete this topic Hepatitis B Vaccine (Standin g Order) Aged Out No longer eligible b ased on patient's age to complete this topic Medical Devices Implanted Type Area Economic Research Assistant Device Identifier Shelf Expiration Date Model / Serial / Lot Baseplate Glenosphere Mini 25mm Tpr Adap - [id number] Implanted:Qty: 1 on 06/26/2023 at [facility] Left: Shoulder BIOMET [id number] 05/21/2033 [id number] / NA / [id number] Tray Humeral Mini +0mm Tpr Offset 40mm - [id number] Implanted:Qty: 1 on 06/26/2023 at [facility] Left: Shoulder JORDYN [id number] 05/26/2033 [id number] / NA / [id number] Screw Central 6.5 X 20mm - [id number] Implanted:Qty: 1 on 06/26/2023 at [facility] Left: Shoulder BIOMET [id number] 05/14/2033 [id number] / NA / [id number] Screw Fixed Locking 4.75 X 25mm - [id number] Implanted:Qty: 1 on 06/26/2023 at [facility] Left: Shoulder BIOMET [id number] 03/19/2033 [id number] / NA / [id number] Screw Fixed Locking 4.75 X 15mm - [id number] Implanted:Qty: 1 on 06/26/2023 at [facility] Left: Shoulder BIOMET [id number] 05/21/2033 [id number] / NA / [id number] Screw Fixed Locking 4.75 X 15mm - [id number] Implanted:Qty: 1 on 06/26/2023 at [facility] Left: Shoulder BIOMET [id number] 05/21/2033 [id number] / NA / [id number] Screw Fixed Locking 4.75 X 30mm - [id number] Implanted:Qty: 1 on 06/26/2023 at [facility] Left: Shoulder BIOMET [id number] 04/29/2033 [id number] / NA / [id number] Glenosphere Versa-Dial 36mm +3mm - [id number] Implanted:Qty: 1 on 06/26/2023 at [facility] Left: Shoulder BIOMET [id number] 11/22/2032 [id number] / NA / [id number] Comprehensive Shoulder System Primary Shoulder Stem Micro Length Porous Plasma 15mm 55mm Long Implanted:Qty: 1 on 06/26/2023 at [facility] Left: Shoulder 06/05/2031 [id number] / NA / [id number] Bearing Humeral Prolong 36mm +3mm - [id number] Implanted:Qty: 1 on 06/26/2023 at [facility] Left: Shoulder JORDYN [id number] 03/31/2028 [id number] / NA / [id number] Advance Directives For more information, please contact: [phone] Documents on File Type Date Recorded Patient Academic Adviser Expl anation Advance Directive - RV 06/26/2023 4:57 PM ADVANCE DIRECTIVE * Full Code (Latest Code Status on File) Date Activated Date Inactivated Comments 06/26/2023 5:34 AM 06/27/2023 1:28 PM Care Teams Assistant Store Director Relationship Specialty Start Date End Date Elsewhere, Pcp PCP - General 06/26/23
== END 2024-04-09 17:46 | disposition home or self-care (01) ==
LOC: NFLDREF 04-14 07:31
PROVIDERS: PCP Student in an Organized Health Care Education/Training Program; Referring Provider Student in an Organized Health Care Education/Training Program; Visit Provider Nurse Practitioner
DX: R30.0 Dysuria (principal); N30.00 Acute cystitis without hematuria
CPT/HCPCS: 87086; 87186

== ENCOUNTER 2024-05-20 17:59 | Emergency (ER) | payer MEDICARE, BC, SELFPAY ==
[2024-05-20 18:06] VITALS: BP 167/83; PULSE 81; RESP 16; TEMP 35.9; O2SAT 96; BMI 24.3
--- NOTE | 2024-05-20 18:33 | CRLHL7_ITS ---
For Patients: As a result of the Century Cures Act, medical imaging exams and procedure reports are released immediately into your electronic medical record. You may view this report before your referring provider. If you have questions, please contact your health care provider. TECHNIQUE: Multiplanar CT examination of the head was performed without the use of intravenous contrast. INDICATION: Dizziness. COMPARISON: MR brain 10/30/2018. FINDINGS: No loss of garces-white differentiation to suggest recent territorial infarct. No intracranial hemorrhage, abnormal extra-axial fluid collection, hydrocephalus or midline shift. The ventricles and cerebral sulci are prominent caliber common compatible with mild generalized parenchymal volume loss. There is ill-defined hypoattenuation of the supratentorial white matter diffusely, nonspecific but consistent with chronic microvascular ischemic changes. The basal cisterns are patent. The paranasal sinuses and mastoid air cells remain clear. The orbits and calvarium are unremarkable. The cerebellar tonsils are normal position. IMPRESSION: 1. No acute intracranial findings. 2. Mild generalized parenchymal volume loss with chronic microvascular ischemic changes. Please note that all CT scans at this facility use dose modulation, iterative reconstruction, and/or weight-based dosing when appropriate to reduce radiation dose to as low as reasonably achievable. Dictated by Santana Amado MD @ 05/20/2024 7:15:11 PM (Electronically Signed)
--- NOTE | 2024-05-20 18:34 | ED_ITS ---
HPI - General Adult General Chief complaint: Dizziness/Vertigo Stated complaint: Confusion, ataxia, dizziness Time Seen by Provider: 05/20/24 18:20 History of Present Illness HPI narrative: This 73-year-old female comes in reporting some symptoms that began this morning. Intermittently she reports feeling a bit off balance and states that she seemed to have trouble remembering things on a few occasions. She also states that she felt like she had trouble forming some words at times. She arrives here with normal vital signs except for blood pressure a bit elevated. She has not had any fever and does not complain of any pain. There is no report of dysuria or altered bowel function. She was able to drive here without incident and states that she normally walks without any assistance. On arrival here her speech is normal. She does not report any altered sensation or unilat eral weakness. Related Data Home Medications ?Medication ?Instructions ?Recorded ?Confirmed albuterol sulfate 90 mcg/actuation 1 - 2 inh inhalation Q4H PRN 04/16/22 04/09/24 aerosol inhaler budesonide-formoterol HFA 160 2 inh inhalation BID 04/16/22 04/09/24 mcg-4.5 mcg/actuation aerosol inhaler bupropion HCl 300 mg 24 hr tablet, 300 mg PO .AM 04/16/22 04/09/24 extended release fluvoxamine 100 mg tablet 100 mg PO HS 04/16/22 04/09/24 fluvoxamine 50 mg tablet 50 mg PO HS 04/16/22 04/09/24 glucosamine sulfate dipotassium Cl 1 cap PO DAILY 04/16/22 04/09/24 500 mg-chondroitin 400 mg capsule multivitamin (Multiple Vitamins 1 tab PO DAILY 04/16/22 04/09/24 tablet) omega 0-gtd-ptr-fish oil 1,200 mg 1 cap PO DAILY 04/16/22 04/09/24 (144 mg-216 mg) capsule omeprazole 20 mg capsule,delayed 20 mg PO DAILY 04/16/22 04/09/24 release quetiapine 400 mg tablet (Seroquel) 400 mg PO QHS 04/16/22 04/09/24 acetaminophen 01/25/24 04/09/24 aspirin 01/25/24 04/09/24 atorvastatin 40 mg tablet 40 mg PO QPM 01/25/24 04/09/24 Allergies Allergy/AdvReac Type Severity Reaction Status Date / Time levofloxacin (From Levaquin) Allergy Hives Verified 04/09/24 16:47 azithromycin AdvReac Verified 04/09/24 16:47 Erythromycin Allergy Intermediate upset Uncoded 04/09/24 16:47 stomach Quinolones Allergy Mild hives Uncoded 04/09/24 16:47 Review of Systems Status of ROS: Reports: 10 or more systems reviewed and unremarkable except as noted in History and below Narrative: Constitutional: No fevers, no weight gain or loss. Eyes: No discharge. No vision changes. HENT: No congestion, no sore throat, no ear pain. Cardiovascular: No chest pain, no palpitations. Respiratory: No shortness of breath, no wheezes, no cough. Gastrointestinal: No abdominal pain, no vomiting, no diarrhea. Genitourinary: No dysuria, no hematuria. Musculoskeletal: Normal range of motion. Skin: No rashes, no pruritis. Neurological: No weakness or altered sensation. Endo/Heme/Allergies: No bruising or bleeding. No polydipsia. Pysch: no suicidality, no anxiety, no insomnia. All other systems reviewed and are negative. [facility] Medical History Major depressive disorder, recurrent, in full remission ?F33.42 - Major depressive disorder, recurrent, in full remission (ICD-10) Pulmonary nodule, right ?R91.1 - Solitary pulmonary nodule (ICD-10) Osteopenia ?M85.80 - Other specified disorders of bone density and structure, unspecified site (ICD-10) Knee osteoarthritis ?M17.9 - Osteoarthritis of knee, unspecified (ICD-10) Acute gastric ulcer with hemorrhage, without mention of obstruction ?K25.0 - Acute gastric ulcer with hemorrhage (ICD-10) Alcohol abuse, in remission ?F10.11 - Alcohol abuse, in remission (ICD-10) OCD (obsessive compulsive disorder) ?F42.9 - Obsessive-compulsive disorder, unspecified (ICD-10) Generalized anxiety disorder ?F41.1 - Generalized anxiety disorder (ICD-10) Agoraphobia with panic disorder ?F40.01 - Agoraphobia with panic disorder (ICD-10) COPD (chronic obstructive pulmonary disease) ?J44.9 - Chronic obstructive pulmonary disease, unspecified (ICD-10) Major depressive disorder ?F32.9 - Major depressive disorder, single episode, unspecified (ICD-10) Surgical History History of esophagogastroduodenoscopy (EGD) ?Z98.890 - Other specified postprocedural states (ICD-10) Hx of arthroscopy of left knee ?Z98.890 - Other specified postprocedural states (ICD-10) History of left knee replacement ?Z96.652 - Presence of left artificial knee joint (ICD-10) Hx of tubal ligation ?Z98.51 - Tubal ligation status (ICD-10) Social History Smoking Status: Former smoker What tobacco products do you use: cigarettes Smoking quit date/years: <= 15 years ago Do you use any of these nicotine containing products: None Second hand tobacco smoke exposure: No How often do you have a drink containing alcohol: never How often do you have six or more drinks on one occasion: Never AUDIT-C Alcohol total score: 0 Non-prescribed substance use: denies use Caffeine: Yes service: No Exam Narrative: Exam Narrative: Constitutional: Well-developed, well-nourished, no acute distress. HEENT: Normocephalic, atraumatic. Neck: Normal range of motion. Nontender. Supple. Heart: Regular. No murmurs. Normal rate. Intact distal pulses. Lungs: Clear to auscultation. No chest discomfort. No wheezes, rhonchi, or rales. Abdomen: Normal bowel sounds. Nontender. No rebound tenderness. Genitalia: Deferred. Back: No midline tenderness. Normal range of motion. Extremities: Normal range of motion. No injury. Skin: Intact. No rash. Warm. No erythema or pallor. Neurologic: No altered sensation. No weakness. Alert and oriented. No facial asymmetry. Tongue is midline. Eokyjb-nd-ohrt is normal. No pronator drift. Wire Border Assembler strength is equal bilaterally. Able to raise each leg from the bed. Normal speech. Psychiatric: No suicidality. No anxiety or depression. No insomnia. Nursing notes and vitals signs are reviewed. Const: Vital Signs, click to edit/add: Vital Signs - 24 hr 05/20/24 18:06 Temperature 96.7 F L Pulse Rate [Pulse Oximeter] 81 Respiratory Rate 16 Blood Pressure [Ri ght Upper Arm] 167/83 H Pulse Oximetry 96 Oxygen Delivery Me thod Room Air Course Vital Signs Vital signs: Initial Vital Signs Temperature 96.7 F L 05/20/24 18:06 Temperature Source Temporal Artery Scan 05/20/24 18:06 Pulse Rate 81 05/20/24 18:06 Respiratory Rate 16 05/20/24 18:06 Blood Pressure 167/83 H 05/20/24 18:06 Blood Pressure Mean 111 H 05/20/24 18:06 Blood Pressure Position Sitting 05/20/24 18:06 Pulse Oximetry 96 05/20/24 18:06 Oxygen Delivery Method Room Air 05/20/24 18:06 Vital Signs Temperature 96.7 F L 05/20/24 18:06 Pulse Rate 81 05/20/24 18:06 Respiratory Rate 16 05/20/24 18:06 Blood Pressure 167/83 H 05/20/24 18:06 Pulse Oximetry 96 05/20/24 18:06 Oxygen Delivery Method Room Air 05/20/24 18:06 Temperature 96.7 F L 05/20/24 18:06 Pulse Rate 81 05/20/24 18:06 Respiratory Rate 16 05/20/24 18:06 Blood Pressure 167/83 H 05/20/24 18:06 Pulse Oximetry 96 05/20/24 18:06 Oxygen Delivery Method Room Air 05/20/24 18:06 Medical Decision Making MDM Narrative Medical decision making narrative: This patient comes in with some intermittent and generalized reports today of feeling like she is off balance at times and feeling some confusion. She also states that it seemed hard to generate words when talking. Her exam today is completely normal. She does not have any neurologic deficits. Her speech is completely normal. She is ambulating normally and was able to drive here without incident. A CT scan of her head is obtained and returns with no acute findings. Additionally lab results also are reassuring. The patient is grateful to hear these results and feels okay to return home. She states that she is feeling better. I did advise her regarding signs and symptoms that would indicate a need for return and re-evaluation. Lab Data Labs: Lab Results 05/20/24 Range/Units 18:40 WBC 7.45 (4.50-11.00) K/uL RBC 3.60 L (4.00-5.20) m/uL Hgb 11.3 L (12.0-16.0) gm/dL Hct 34.5 (33.0-51.0) % MCV 96 (80-100) fL MCH 31 (26-34) pg MCHC 33 (32-36) gm/dL RDW Coeff of Jacque 12.5 (11.5-15.5) % Plt Count 158 (140-440) K/uL Neut % (Auto) 52.9 (42.0-72.0) % Lymph % (Auto) 28.9 (20-44) % [place] % (Auto) 11.1 H (0.0-11.0) % Eos % (Auto) 5.9 (0.0-7.0) % Baso % (Auto) 0.5 (0.0-3.0) % Neut # (Auto) 3.94 (1.7-7.0) K/uL Lymph # (Auto) 2.15 (0.90-2.90) K/uL [place] # (Auto) 0.80 (0.00-0.90) K/UL Eos # (Auto) 0.44 (0.00-0.50) K/uL Baso # (Auto) 0.04 (0.00-0.30) K/uL Abs Immat Gran (auto) 0.05 (0.00-0.30) K/uL Imm/Tot Granulo (auto) 0.7 % Sodium 134 L (135-149) mmol/L Potassium 5.0 (3.6-5.1) mmol/L Chloride 100 (96-114) mmol/L Carbon Dioxide 25 (20-32) mmol/L Anion Gap 9 (7-15) mEq/L BUN 28 (7-30) mg/dL Creatinine 1.3 (0.5-1.5) mg/dL Estimated Creat Clear 33.65 Estimated GFR 43 ml/min Glucose 83 (60-115) mg/dL Calcium 9.1 (8.4-10.6) mg/dL Imaging Data CT scan - head: Radiologist's impression: 1. No acute intracranial findings. 2. Mild generalized parenchymal volume loss with chronic microvascular ischemic changes. ECG Data Attestation: I personally reviewed and interpreted this ECG as follows: Interpretation: Normal sinus rhythm. Rate is 78 beats per minute. There are no ST or T-wave abnormalities. Discharge Plan Discharge Additional Instructions: Continue current plans. Follow up with MD or return if symptoms are persistent or worsening. Prescriptions: No Action atorvastatin 40 mg tablet 40 mg PO QPM aspirin acetaminophen albuterol sulfate 90 mcg/actuation HFA aerosol inhaler 1 - 2 inh inhalation Q4H PRN budesonide-formoterol 160-4.5 mcg/actuation HFA aerosol inhaler 2 inh inhalation BID bupropion HCl 300 mg tablet extended release 24 hr 300 mg PO .AM omega 0-kvs-lve-fish oil 1,200 (144-216) mg capsule 1 cap PO DAILY fluvoxamine 100 mg tablet 100 mg PO HS Patient Comments: TAKE 1 TABLET BY MOUTH IN THE MORNING AND AT BEDTIME fluvoxamine 50 mg tablet 50 mg PO HS glucosamine gomez 2KCl-chondroit 500-400 mg capsule 1 cap PO DAILY Rx Instructions: give with meal/snack multivitamin [Multiple Vitamins] Tablet 1 tab PO DAILY omeprazole 20 mg capsule,delayed release(DR/EC) 20 mg PO DAILY quetiapine [Seroquel] 400 mg tablet 400 mg PO QHS Follow Up/Referrals: Peg Maravilla PA-C [Primary Care Provider] -
[2024-05-20 18:48] LABS: Basophils Absolute Auto 0.04 K/uL (0.00-0.30); Basophils Percent Auto 0.5 % (0.0-3.0); Eosinophils Absolute Auto 0.44 K/uL (0.00-0.50); Eosinophils Percent Auto 5.9 % (0.0-7.0); Hematocrit 34.5 % (33.0-51.0); Hemoglobin* 11.3 gm/dL (12.0-16.0); Immature Granulocytes Abs Auto 0.05 K/uL (0.00-0.30); Immature Granulocytes Pct Auto 0.7 %; Lymphocytes Absolute Auto 2.15 K/uL (0.90-2.90); Lymphocytes Percent Auto 28.9 % (20-44); Mean Corpuscular HGB Conc 33 gm/dL (32-36); Mean Corpuscular Hemoglobin 31 pg (26-34); Mean Corpuscular Volume 96 fL (80-100); Monocytes Percent Auto 11.1 % (0.0-11.0); Neutrophils Absolute Auto 3.94 K/uL (1.7-7.0); Neutrophils Percent Auto 52.9 % (42.0-72.0); Platelet Count* 158 K/uL (140-440); RDW Coefficient of Variation % 12.5 % (11.5-15.5); White Blood Count* 7.45 K/uL (4.50-11.00)
[2024-05-20 18:57] LABS: Slide Review Reflex No
[2024-05-20 19:16] LABS: Chloride* 100 mmol/L (96-114); Sodium* 134 mmol/L (135-149)
[2024-05-20 19:19] LABS: Anion Gap 9 mEq/L (7-15); Blood Urea Nitrogen* 28 mg/dL (7-30); Calcium* 9.1 mg/dL (8.4-10.6); Carbon Dioxide* 25 mmol/L (20-32); Creatinine* 1.3 mg/dL (0.5-1.5); Est. Creatinine Clearance* 33.65; Estimated Glomerular Filt Rate 43 ml/min; Glucose* 83 mg/dL (60-115)
--- OUTSIDE RECORDS SUMMARY | 2024-05-20 20:04 | XMS_ITS | Clinical Summary ---
Author Organization [facility] Address [address] [address] Phone Care Team Providers Care Log Chain Worker Name Role Phone Elsewhere, Pcp Primary Care Provider Unavailabl e Allergies Active Allergy Reactions Criticality Noted Date Comments Azithromycin Other Low 06/20/2023 Inteferes with taking Seoquel Erythromycin Other Low 06/20/2023 GI upset Levofloxacin Hives High 06/20/2023 Medications acetaminophen (Tylenol) 500 MG tablet Take 1,000 mg by mouth every six hours as needed for Pain. Limit acetaminophen to 4000 mg per day from all sources. Active albuterol HFA (Proair HFA, Ventolin HFA) 108 (90 Base) MCG/ACT inhalation aerosol Inhale 1-2 Puffs into the lungs every four hours as needed for Shortness of Breath. Shake before using. Active ipratropium-al buterol (Duo-Neb) 0.5-2.5 (3) MG/3ML Solution Inhale 3 mL into the lungs one time a day. Increase up to 4 times daily as needed Active atorvaSTATin (Lipitor) 40 MG tablet Take 40 mg by mouth at bedtime. Active buPROPion XL (Wellbutrin XL) 300 MG 24 hour extended release tablet Take 300 mg by mouth every morning. Do not crush. Active clotrimazole (Mycelex) 10 MG trocheIndicati ons:Infection Take 10 mg by mouth four times a day as needed. Indications: Infection Active GLUCOSAMINE-FI SH OIL-EPA-DHA OR Take 1 Capsule by mouth one time a day. Active fluvoxaMINE (Luvox) 100 MG tablet Take 100 mg by mouth two times a day. Active Fluvoxamine Maleate 100 MG Capsule Extended Release 24 Hour Take 1 Capsule by mouth two times a day. Take with 100 mg tab for total of 150 mg twice daily Active glucosamine-ch ondroitin 500-400 MG capsule Take 1 Capsule by mouth one time a day. Active Multiple Vitamin (therapeutic multivitamin) tablet Take 1 Tablet by mouth one time a day. Active omeprazole (PriLOSEC) 20 MG delayed-releas e capsule Take 20 mg by mouth one time a day. Take before meals. Do not crush. Active QUEtiapine (SEROquel) 400 MG tablet Take 400 mg by mouth at bedtime. Active budesonide-for moterol (Symbicort) 160-4.5 MCG/ACT aerosol inhaler Inhale 2 Puffs into the lungs two times a day. Active triamcinolone acetonide (Kenalog) 0.5 % cream Apply 1 g topically two times a day as needed (eczema). Apply to affected area eczema Active hydrOXYzine HCl (Atarax) 10 MG tablet Take 1 Tablet by mouth three times a day as needed for Other (muscle spasms). 40 Tablet 3 Active sennosides-doc usate sodium (Senokot-S) 8.6-50 MG oral tablet Take 1 Tablet by mouth one time a day. 40 Tablet 3 Active aspirin EC 81 MG tablet Take 1 Tablet by mouth two times a day (breakfast and supper). Do not split or crush. 60 Tablet 3 Active aspirin (Aspirin 81) 81 MG chewable tablet Chew and swallow 1 Tablet one time a day. Resume prior to admission once daily dosing after completion of post-operative twice daily dosing for 4 weeks. 3 Active Active Problems Problem Noted Date Diagnosed Date S/P reverse total shoulder arthroplasty, left Surgical History Surgery Date Site/Laterality Comments TOTAL KNEE REPLACEMENT 07/14/2014 - 07/13/2015 Left SHOULDER ARTHROPLASTY 06/26/2023 Shoulder/Left Procedure: Left reverse total shoulder arthroplasty; Surgeon: Austin Nevarez MD; Location: [facility] OR Medical devices from this surgery are [...] members or any other acquaintances? No 2022 Comments No Sex and Gender Information Value Date Recorded Sex Assigned at Not on file Legal Sex Female 8:43 AM HAIR SPECIALIST Gender Identity Female 06/25/2023 9:58 AM HAIR SPECIALIST Sexual Orientation Not on file Obstetrics History Last Filed Vital Signs Vital Sign Reading Time Taken Comments Blood Pressure 153/122 06/27/2023 9:09 AM HAIR SPECIALIST Pulse 86 06/27/2023 9:09 AM HAIR SPECIALIST Temperature 36.7 ??C (98 ??F) 06/27/2023 9:09 AM HAIR SPECIALIST Respiratory Rate 16 06/27/2023 9:09 AM HAIR SPECIALIST Oxygen Saturation 91% 06/27/2023 9:09 AM HAIR SPECIALIST Inhaled Oxygen Concentration - - Weight 66.5 kg (146 lb 8 oz) 06/26/2023 6:36 AM HAIR SPECIALIST Height 167.6 cm (5' 6) 06/26/2023 6:36 AM HAIR SPECIALIST Body Mass Index 23.65 06/26/2023 6:36 AM HAIR SPECIALIST Plan of Treatment Health Maintenance Due Date Last Done Comments CT Colonography 1948 Cologuard 1950 Colonoscopy 1950 Colorectal Cancer Screening 1948 FIT/FOBT 1948 Sigmoidoscopy 1948 PERTUSSIS (Standing Order) 1967 TETANUS (Standing Order) 1967 Shingrix (Zoster recombinant ) vaccine (Standing Order) (1 of 2) 1998 DXA,FEMALES AGE 65 OR GREATER 2013 Pneumococcal Vaccine: 65+ yr s (Standing Order) (1 of 1 - PCV) 2013 RSV Vaccination (60+ yrs) (Abrysvo/Arexvy) (1 - 1-dose 75+ series) 2023 COVID-19 Vaccine (2023-2 5 season) 2024 Influenza Vaccine Seasonal (Standing Order) (#1) 2024 HPV Vaccine (Standing Order) Aged Out No longer eligible based on patient's age to complete this topic Hepatitis B Vaccine (Standin g Order) Aged Out No longer eligible b ased on patient's age to complete this topic Medical Devices Implanted Type Area Title Department Manager Device Identifier Shelf Expiration Date Model / Serial / Lot Baseplate Glenosphere Mini 25mm Tpr Adap - [id number] Implanted:Qty: 1 on 06/26/2023 at [facility] Left: Shoulder BIOMET [id number] 05/21/2033 [id number] / NA / [id number] Tray Humeral Mini +0mm Tpr Offset 40mm - [id number] Implanted:Qty: 1 on 06/26/2023 at [facility] Left: Shoulder JORDYN [id number] 05/26/2033 [id number] / NA / [id number] Screw Central 6.5 X 20mm - [id number] Implanted:Qty: 1 on 06/26/2023 at [facility] Left: Shoulder BIOMET [id number] 05/14/2033 [id number] / NA / [id number] Screw Fixed Locking 4.75 X 25mm - [id number] Implanted:Qty: 1 on 06/26/2023 at [facility] Left: Shoulder BIOMET [id number] 03/19/2033 [id number] / NA / [id number] Screw Fixed Locking 4.75 X 15mm - [id number] Implanted:Qty: 1 on 06/26/2023 at [facility] Left: Shoulder BIOMET [id number] 05/21/2033 [id number] / NA / [id number] Screw Fixed Locking 4.75 X 15mm - [id number] Implanted:Qty: 1 on 06/26/2023 at [facility] Left: Shoulder BIOMET [id number] 05/21/2033 [id number] / NA / [id number] Screw Fixed Locking 4.75 X 30mm - [id number] Implanted:Qty: 1 on 06/26/2023 at [facility] Left: Shoulder BIOMET [id number] 04/29/2033 [id number] / NA / [id number] Glenosphere Versa-Dial 36mm +3mm - [id number] Implanted:Qty: 1 on 06/26/2023 at [facility] Left: Shoulder BIOMET [id number] 11/22/2032 [id number] / NA / [id number] Comprehensive Shoulder System Primary Shoulder Stem Micro Length Porous Plasma 15mm 55mm Long Implanted:Qty: 1 on 06/26/2023 at [facility] Left: Shoulder 06/05/2031 [id number] / NA / [id number] Bearing Humeral Prolong 36mm +3mm - [id number] Implanted:Qty: 1 on 06/26/2023 at [facility] Left: Shoulder JORDYN [id number] 03/31/2028 [id number] / NA / [id number] Insurance [facility] [employer] MEDICARE COST PART A&B Advance Directives For more information, please contact: [phone] Documents on File Type Date Recorded 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
--- OUTSIDE RECORDS SUMMARY | 2024-05-20 20:04 | XMS_ITS | Clinical Summary ---
Author Organization [facility] Address [place], [place] [address] Care Team Providers Care Fresco Artist Name Role Phone Peg Maravilla Primary Care Provider [phone] Allergies Active Allergy Reactions Criticality Noted Date Comments Azithromycin Other - Describe In Comment Field 06/09/2013 Interferes with taking Seroquel Erythromycin GI Upset 05/06/2007 Levofloxacin Hives 05/15/2011 Medications Medication Sig Dispensed Refills Start Date End Date Status MULTIVITAMIN TAB Take 1 Tablet by mouth once daily. Contains 0.4 mg of Folic Acid. 0 05/06/2007 Active phototherapy light boxIndications:Roney or depressive disorder, recurrent episode, unspecified As directed. For home use. 1 unit 0 08/07/2011 Active glucosamine-chondr oitin, 500-400 mg, (COSAMIN DS 500/400) 500-400 mg cap Take 1 Capsule by mouth once daily. Taking 1500 mg daily 0 01/18/2014 Active Fish Oil-DHA-EPA 1,200-144-216 mg cap Take 1 Capsule by mouth once daily. 0 01/18/2014 Active NebulizerIndicatio ns:COPD, moderate (HC) Nebulizer, neb kit, neb cup and mask. Medication: Duoneb For home use. Length of need for Medicare patients: lifetime. Diagnosis 496 COPD 1 Device 0 04/08/2014 Active acetaminophen (TYLENOL EXTRA STRGTH) 500 mg tablet Take 1,000 mg by mouth every 6 hours if needed for Pain or Temp > (Specify). 01/27/2015 Active albuterol HFA (ProAir HFA) 90 mcg/actuation inhalerIndications :COPD, moderate (HC) Inhale 1-2 Puffs by mouth every 4 hours if needed for Shortness Of Breath. 8.5 g 2 07/23/2022 Active clotrimazole (MYCELEX MERCEDEZ) 10 mg mercedez Dissolve 10 mg in the mouth 4 times daily if needed. Active aspirin chewable 81 mg chewable tabletIndications: Acute HFrEF (heart failure with reduced ejection fraction) (HC) Chew 1 Tablet (81 mg) by mouth once daily. 30 Tablet 3 01/12/2023 Active budesonide-formote roL (Symbicort) 160-4.5 mcg/actuation (160-4.5 mcg each actuation) inhalerIndications :COPD, moderate (HC) INHALE TWO PUFFS BY MOUTH TWICE DAILY 30.6 g 4 03/18/2023 Active LORazepam (ATIVAN) 0.5 mg tabIndications:Gen eralized anxiety disorder Take 1 Tablet (0.5 mg) by mouth once daily if needed for Anxiety. 15 Tablet 04/02/2023 Active triamcinolone 0.5% (ARISTOCORT) 0.5 % creamIndications:C hronic eczema Apply topically to affected area(s) two times daily. To eczema areas as needed. 15 g 1 10/13/2023 Active omeprazole (PRILOSEC) 20 mg Delayed-Release capsuleIndications :Chronic GERD Take 1 Capsule (20 mg) by mouth once daily before a meal 90 Capsule 2 10/22/2023 Active buPROPion (WELLBUTRIN XL) 300 mg Extended-Release tabletIndications: Major depressive disorder, recurrent, in full remission (HC) Take 1 Tablet (300 mg) by mouth once daily in the morning. 90 Tablet 1 02/03/2024 Active fluvoxaMINE (LUVOX) 100 mg tabletIndications: Major depressive disorder, recurrent, in full remission (HC),Generalized anxiety disorder,Obsessive -compulsive disorder, unspecified type TAKE ONE TABLET IN THE MORNING AND 1 TABLET AT BEDTIME, 180 Tablet 1 02/03/2024 Active fluvoxaMINE (LUVOX) 50 mg tabletIndications: Major depressive disorder, recurrent, in full remission (HC) Take 1 Tablet (50 mg) by mouth two times daily. Take with 100 mg tab for total of 150 mg twice daily. 180 Tablet 1 02/03/2024 Active QUEtiapine (SEROQUEL) 400 mg tabletIndications: Major depressive disorder, recurrent, in full remission (HC),Generalized anxiety disorder,Obsessive -compulsive disorder, unspecified type Take 1 Tablet by mouth at bedtime. 90 Tablet 1 02/03/2024 Active albuterol-ipratrop ium (DUONEB) (2.5-0.5 mg) in 3 mL NEBULIZATION solutionIndication s:COPD, moderate (HC) Use one nebulizer once daily. Increase up to four times daily as needed. 270 mL 1 03/22/2024 Active atorvastatin (LIPITOR) 40 mg tabletIndications: Acute HFrEF (heart failure with reduced ejection fraction) (HC) Take 1 Tablet (40 mg) by mouth at bedtime. 90 Tablet 3 05/17/2024 Active atorvastatin (LIPITOR) 40 mg tabletIndications: Acute HFrEF (heart failure with reduced ejection fraction) (HC) Take 1 Tablet (40 mg) by mouth at bedtime. Further refills at upcoming appointment on March 17, 2024. 90 Tablet 02/11/2024 4 Discontinue d(Reorder (E-cancel not sent)) Active Problems Patient Care Coordination No te Formatting of this note migh t be different from the original. My Care Team Patient Care Team: Dr. Adonis Watts as PCP - General - [phone] Linn Walsh modeler -[facility] (Registered Nurse)[phone] My Emergency Plan If you are having the following symptoms, call your doctor's office at [phone]. Ask for the triage nurse and tell [...] Go to the emergency room or call 425 if you have any of the following: -struggling to breathe: unrelieved shortness of breath while sitting still -chest pain -confusion or unable to think clearly. Please Call Dr. Adonis Watts: [phone] [facility] and after hours nurse triage [phone] RN Clinic [facility] Linn Walsh RN [phone] Problem Noted Date Diagnosed Date COPD, moderate 10/08/2023 Acute HFrEF (heart failure with reduced ejection fraction) 10/08/2023 Stricture of artery 10/08/2023 Primary cardiomyopathy 10/08/2023 Moderate episode of recurrent major depressive d isorder 06/17/2023 Assessment & Plan (06/17/2023 1:31 PM SURGERY MANAGER): Chart update only. ANAYA Segura .................... 06/17/2023 1:31 PM Major depressive disorder, recurrent, in full re mission 08/02/2020 Pulmonary nodule, right 03/30/2020 Overview (03/30/2020): Two nodules, right lower lobe. CT done Mar 2020. Repeat in one year. Left mid foot arthritis 11/10/2014 Osteopenia 08/23/2013 Overview (06/28/2020): Bone density done at [facility]. Repeat Aug 2015. Bone density June 2016 [...] Plan Documents (Health Care Directive, POLST): No, retail store manager to review with patient . Patient [...] Linn Walsh RN RN Medical Home [facility] [phone] COPD, moderate 11/06/2010 07/23/2022 Overview (05/16/2011): Has had Home OXYGEN since October 2010. Routine general medical exam ination at a health care facility 08/21/2010 08/16/2011 Overview (08/21/2010): Gets Sugar Reprocess Operator Head services and Mammogram at [facility]. 08/21/2010 Encounters Date Type Department Care Team Description 05/19/2024 11:40 AM SURGERY MANAGER Ancillary Procedure [facility] [address] [facility] [place] [address] Arrived 05/19/2024 11:00 AM SURGERY MANAGER Ancillary Procedure [facility] [address] [place] [address] Arrived 05/18/2024 Travel 05/17/[address] [address] Hubert Blanton MD Refill Request 04/20/2024 Telephone [facility] [address] [place] [address] Elayne Penaloza MD Prior Authorization (fluvoxaMINE (LUVOX) 50 mg tablet APPROVED 01/21/24-04/20/25) 03/24/2024 Telephone [facility] [address] [place] [address] Elayne Penaloza MD Prior Authorization (fluvoxaMINE (LUVOX) 100 mg tablet PA NOT NEEDED) 03/23/2024 Orders Only [facility] [address] [place] [address] Peg Marvailla PA 1 scan: (1-Ord) [facility]-EKG-03/22/24 03/23/2024 Telephone [facility] [address] [place] [address] Peg Maravilla PA Follow Up (ekg) 03/22/2024 10:45 AM CDT Preop Visit [address] [address] Peg Maravilla PA Preoperative Exam (03/25/24 /Reverse should replacement Right side/[facility]/Dr. Barrera/[phone]) 03/22/2024 Telephone [facility] [address] [place] [address] Elayne Penaloza MD Form 03/22/2024 Travel 03/20/2024 Travel 03/17/2024 11:00 AM CDT Office Visit [facility] at [address] [phone] Hubert Blanton MD Follow Up 03/17/2024 Refill [facility] [address] [place] [address] Peg Maravilla PA Refill Request (Albuterol-ipratropiu m) 03/17/2024 Travel from Last 3 Months Immunizations Name Administration Dates Next Due AMB INFLUENZA IIV3 (AGE 65+ YRS) PF (Flu Clinic Only) 06/12/2018 AMB Influenza, IIV4 PF (=>6 mos Flulaval,Fluzone Fluarix)(Flu Clinic Only) 03/31/2014 COVID-19 vaccine (OZ SafeRooms-Bio NTech 30mcg/0.3mL) 12YO+ BIVALENT PF, MDV 07/23/2022 COVID-19 vaccine (OZ [employer]Rooms-MindSnacks NTech 30mcg/0.3mL) 12YO+ ZAHIRA-SUCROSE PF, MDV 02/06/2022 COVID-19 vaccine ([place] Vodka NTech 30mcg/0.3mL) PF, MDV 04/19/2021,10/03/2020,09/12/2020 Influenza, High-dose [...] 0 02/02/2024 Social Connections Answer Date Recorded Do you often feel lonely or isolated from those around you? 0 06/16/2023 Alcohol Use Answer Date Recorded How often do you have a drink containing alcohol ? 0 01/18/2022 Average Number of Drinks Not on file 022 Frequency of Binge Drinking Not on file 02/2022 Financial Resource Strain Answer Date R ecorded Difficulty of Paying Living Expenses 3 06/16/2023 Difficulty of Paying Living Expenses Not on file 06/16/2023 Food Insecurity Answer Date Recorded Do you worry your food will run out before you are able to buy more? 1 06/16/2023 Transportation Needs Answer Date Record ed Does lack of transportation keep you from medica l appointments? 1 06/16/2023 Does lack of transportation keep you from work, meetings or getting things that you need? 1 06/16/2023 Housing Stability Answer Date Recorded What is your housing situation today? 1 06/16/2023 Sex and Gender Information Value [...] st Contact Info) Description 08/09/2024 8:45 AM SURGERY MANAGER Office Visit [facility] [address] [place] [address] Elayne Penaloza MD [address] [place] [address] Health Maintenance Due Date Last Done Comments RSV vaccine for adults or (1 - 1-dose 75+ series) 2023 Medicare Wellness for age 65+ 07/24/2023, 04/19/2021, 03/28/2020 COVID-19 vaccine series ( season) 2024 04/21/2023, 07/23/2022, 02/06/2022, Additional history exists Influenza for age 65+ 03/14/2024 04/08/2023 , 04/12/2022, 04/19/2021, Additional history exists Depression screening for age 12+ 02/02/2025 02/03/2024, 02/02/2024, 07/25/2023, Additional history exists BMI (ht and wt on same day) for age 18+ 03/22/2025 03/22/2024, 10/08/2023, 06/16/2023, Additional history exists Low Dose CT (for lung CA) ag e 50-80 05/19/2025 05/19/2024, 05/01/2023, 04/30/2022, Additional history exists CT Colonography for age [...] for age 50+ Completed 10/17/2020, 04/24/2020, 06/09/2013 Goals Goal Patient Goal Type Associated Problems [...] Procedure Name Priority Date/Time Associated Diagnosis Comments XR MAMMO TRACIE BILAT SCREEN Routine 05/19/2024 11:25 AM SURGERY MANAGER Visit for screening mammogram CT CHEST SCREENING LOW DOSE WO CONTRAST Routine 05/19/2024 11:08 AM SURGERY MANAGER Encounter for screening for lung cancer Former smoker PA READING EKG - NO CHARGE, COMP ONLY Routine 03/23/2024 10:07 AM CDT Preop examination EKG 12 LEAD Routine 03/23/2024 10:06 AM CDT Preop examination HEMOGLOBIN Routine 03/22/2024 11:35 AM CDT Preop examination BASIC METABOLIC PANEL Routine 03/22/2024 11:35 AM CDT Preop examination LIPID PANEL W REFLEX MEASURED LDL Routine 02/10/2024 11:52 AM CDT Other terminal carman (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 therapy CT ABDOMEN PELVIS COLONOGRAPHY DIAGNOSTIC W Today 10/29/2022 6:58 PM CDT Positive colorectal cancer screening using DNA-based stool test Procedure and treatment not carried out for other reasons XR DXA BONE DENSITY 2 SITES AXIAL Routine 06/22/2020 10:53 AM SURGERY MANAGER Asymptomatic postmenopausal state ANTI HCV Routine 03/28/2020 9:50 AM CDT Encounter for hepatitis C screening test for low risk patient from Last 3 Months or Most Recently Relevant to Health Maintenance Results * XR MAMMO TRACIE BILAT SCREEN (05/19/2024 11:25 AM SURGERY MANAGER) Anatomical Region Laterality Modality BREASTS, Breast Left, Breast Right Bilateral Mammography Impressions 05/19/2024 3:43 PM SURGERY MANAGER ??There is no radiographic evidence for malignancy. ??Recommend annual mammograms. MAMMOGRAM ASSESSMENT: ??ACR 1 Negative PATIENTS: You will also receive a letter with your examination results in an easy to read format. ??If you have questions about your results, please contact your referring provider. Narrative 05/19/2024 3:43 PM SURGERY MANAGER For Patients: As a result of the Century Cures Act, medical imaging exams and procedure reports are released immediately into your electronic medical record. You may view this report before your referring provider. If you have questions, please contact your health care provider. XR MAMMO TARCIE BILAT SCREEN [[id number]] CLINICAL HISTORY: ??This is an asymptomatic 73 y.o. patient. INDICATION FOR EXAM: Mammogram Screening. TECHNIQUE: CC & MLO views were obtained. ??This study was evaluated with the assistance of Computer-Aided Detection. Breast Tomosynthesis was used in interpretation. COMPARISON FILM: Yes 03/25/23 [facility] 01/28/22 [facility] FINDINGS: ??There are scattered areas of fibroglandular density. There are no dominant masses, suspicious micro calcifications or areas of architectural distortion. Peg JULIEN MAMMO * CT CHEST SCREENING LOW DOSE WO CONTRAST (05/19/2024 11:08 AM SURGERY MANAGER) Anatomical Region Laterality Modality Computed Tomogra phy Impressions 05/20/2024 4:13 PM SURGERY MANAGER Stable pulmonary nodules. Lung-RADS Category 2, benign. Continue annual screening with low-dose chest CT in 12 months. Please note that all CT scans at this facility use dose modulation, iterative reconstruction and/or weight-based dosing when appropriate to reduce radiation dose to as low as reasonably achievable. ?? Dictated by: Inderjit Celeste MD @05/19/2024 7:23:57 PM /sp Neuroradiologist Narrative 05/20/2024 4:13 PM SURGERY MANAGER For Patients: As a result of the Cures Act, medical imaging exams and procedure reports are released immediately into your electronic medical record. ??You may view this report before your referring provider. ?? If you have questions, please contact your health care provider. CT CHEST SCREENING LOW-DOSE WITHOUT CONTRAST 05/19/2024 INDICATION: Lung cancer screening. TECHNIQUE: Non-contrast CT images of the chest. COMPARISON: CT chest 05/01/2023. FINDINGS: Motion and beam hardening artifact limit evaluation. Stable 5 mm solid nodule right lower lobe (series 5 image 93). Stable 3 mm solid nodules lateral right lower lobe (series 5 image 115, 112). No focal consolidation, pleural effusion, or pneumothorax. The heart size is normal. No pericardial effusion. Coronary artery atherosclerotic calcifications. No mediastinal or hilar lymphadenopathy. Moderate hiatal hernia. Beam hardening artifact secondary to bilateral shoulder prostheses. Multilevel thoracic spondylosis. No aggressive osseous lesions. Peg JULIEN CT * PA READING EKG - NO CHARGE, COMP ONLY (03/23/2024 10:07 AM CDT) Peg JULIEN PB - PROVIDER CAMELIA DINGS * EKG 12 LEAD (03/23/2024 10:06 AM CDT) Peg JULIEN EKG ORD * HEMOGLOBIN (03/22/2024 11:35 AM CDT) HEMOGLOBIN 12.1 12.0 - 16.0 g/dL 03/22/2024 11:55 AM CDT [facility] MCV 93 80 - 100 fL 03/22/2024 11:55 AM CDT [facility] Blood BLOOD SPECIMEN / Unknown Venipuncture / Unknown 03/22/2024 11:35 AM CDT 03/22/2024 11:35 AM CDT Peg JULIEN HEMATOLOGY [facility] [address] [place] [address], * (ABNORMAL) BASIC METABOLIC PANEL (03/22/2024 11:35 AM CDT) SODIUM 139 136 - 145 mmol/L 03/23/2024 5:03 AM CDT [facility] POTASSIUM 4.4 3.5 - 5.1 mmol/L 03/23/2024 5:03 AM CDT [facility] CHLORIDE 102 98 - 107 mmol/L 03/23/2024 5:03 AM T [facility] CO2,TOTAL 22 22 - 29 mmol/L 03/23/2024 5:03 AM T [facility] ANION GAP 15 5 - 18 03/23/2024 5:03 AM T [facility] GLUCOSE 89 70 - 99 mg/dL 03/23/2024 5:03 AM T [facility] CALCIUM 9.0 8.8 - 10.2 mg/dL 03/23/2024 5:03 AM T [facility] BUN 21 8 - 23 mg/dL 03/23/2024 5:03 AM T [facility] CREATININE 1.09(H) 0.50 - 0.90 mg/dL 03/23/2024 5:03 AM T [facility] BUN/CREAT RATIO 19 10 - 20 5:03 AM T [facility] eGFR 53(L) >90 mL/min/1.7 3m2 03/23/2024 5:03 AM T [facility] Comment:As of 2021, eG [...] 03/22/2024 11:35 AM CDT Peg JULIEN CHEMISTRY Performing Organization Address [facility] Co de Phone Number [facility] [address] [place] [address], [place] * LIPID PANEL W REFLEX MEASURED LDL (02/10/2024 11:52 AM CDT) [facility] CHOLESTEROL,TOTAL 113 100 - 199 mg/dL 02/11/2024 1:19 AM CDT [facility] Comment: Cholesterol, Total Reference Ranges Desirable <200 mg/dL Borderline 200-239 mg/dL High >=240 mg/dL TRIGLYCERIDES 74 <150 mg/dL 02/11/2024 1:19 AM CDT [facility] HDL CHOLESTEROL 53 >40 mg/dL 1:19 AM CDT [facility] NON-HDL CHOLESTEROL 60 <145 mg/dl 02/11/2024 1:19 AM T [facility] CHOL/HDL RATIO 2.13 <4.50 02/11/2024 1:19 AM CDT [facility] LDL CHOLESTEROL 45 <=130 mg/dL 02/11/2024 1:19 AM T [facility] VLDL CHOLESTEROL 15 <=30 mg/dL 02/11/2024 1:19 AM T [facility] PROVIDER ORDERED STATUS RANDOM 02/11/2024 1:19 AM T [facility] Blood BLOOD SPECIMEN / Unknown Venipuncture / Unknown 02/10/2024 11:52 AM CDT 02/10/2024 11:52 AM CDT Elayne Penaloza MD CHEMISTRY Performing Organization Address [facility]/ZIP Co de Phone Number [facility] [address] [place] [address], [place] * CT ABDOMEN PELVIS COLONOGRAPHY DIAGNOSTIC W (10/29/2022 6:58 PM CDT) Anatomical Region Laterality Modality Abdomen, Pelvis Computed Tomogra phy 10/29/2022 6:58 PM CDT Impressions 10/30/2022 8:33 AM CDT IMPRESSION: 1. ??Extremely tortuous redundant colon. 2. ??Colon otherwise negative. 3. ??Moderate size sliding esophageal hiatal hernia. Narrative 10/30/2022 8:33 AM CDT EXAM: CT COLONOGRAPHY LOCATION: [facility] DATE/TIME: 10/29/2022 6:58 PM CDT INDICATION: [...] the presence of which will not likely director records management of the patient. ADDITIONAL FINDINGS: Moderate size sliding esophageal hiatal hernia. No other incidental findings. E Score: E3, Likely unimportant, incompletely characterized Procedure Note Janusz De Anda MD - 10/30/2022 EXAM: CT COLONOGRAPHY LOCATION: [facility] DATE/TIME: 10/29/2022 6:58 PM CDT INDICATION: [...] the presence of which will not likely director records management of the patient. ADDITIONAL FINDINGS: Moderate size sliding esophageal hiatal hernia. No other incidental findings. E Score: E3, Likely unimportant, incompletely characterized IMPRESSION: IMPRESSION: 1. Extremely tortuous redundant colon. 2. Colon otherwise negative. 3. Moderate size sliding esophageal hiatal hernia. Erasmo Eaton MD CT * (ABNORMAL) XR DXA BONE DENSITY 2 SITES AXIAL (06/22/2020 10:53 AM SURGERY MANAGER) Anatomical Region Laterality Modality Spine, HIPS, HIPL, HIPR Other Narrative 06/26/2020 4:46 PM SURGERY MANAGER Please see scanned document for results of this study. Shivani JULIEN DEXA * ANTI HCV (03/28/2020 9:50 AM CDT) HEPATITIS C ANTIBODY Non-React sasha Non-React sasha 03/28/2020 6:34 PM CDT [facility] Comment:Antibodies to HCV no t detected; does not exclude the possibility of exposure to HCV. Blood BLOOD SPECIMEN / Unknown Venipuncture / Unknown 03/28/2020 9:50 AM CDT 03/28/2020 9:50 AM CDT Shivani JULIEN SEND OUTS [facility] 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
== END 2024-05-20 20:07 | disposition home or self-care (01) ==
LOC: ED 20:02
PROVIDERS: Emergency Provider Emergency Medicine Emergency Medical Services; PCP Student in an Organized Health Care Education/Training Program
DX: R42 Dizziness and giddiness (principal)
CPT/HCPCS: 36415; 70450; 80048; 85025; 99284

== ENCOUNTER 2024-05-25 15:17 | Outpatient (CLI) | payer MEDICARE, BC, SELFPAY ==
--- OUTSIDE RECORDS SUMMARY | 2024-05-29 14:48 | XMS_ITS | Clinical Summary ---
Author Organization [facility] Address [address] [address] Phone Care Team Providers Care Disability Coordinator Name Role Phone Elsewhere, Pcp Primary Care [...] shoulder arthroplasty; Surgeon: Austin Nevarez MD; Location: [facility] ([facility]3] OR Medical devices from this surgery are [...] on file Legal Sex Female 8:43 AM QUALITY DIRECTOR Gender Identity Female 06/25/2023 9:58 AM QUALITY DIRECTOR Sexual Orientation Not on file Obstetrics History Last Filed Vital Signs Vital Sign Reading Time Taken Comments Blood Pressure 153/122 06/27/2023 9:09 AM QUALITY DIRECTOR Pulse 86 06/27/2023 9:09 AM QUALITY DIRECTOR Temperature 36.7 ??C (98 ??F) 06/27/2023 9:09 AM QUALITY DIRECTOR Respiratory Rate 16 06/27/2023 9:09 AM QUALITY DIRECTOR Oxygen Saturation 91% 06/27/2023 9:09 AM QUALITY DIRECTOR Inhaled Oxygen Concentration - - Weight 66.5 kg (146 lb 8 oz) 06/26/2023 6:36 AM QUALITY DIRECTOR Height 167.6 cm (5' 6) 06/26/2023 6:36 AM QUALITY DIRECTOR Body Mass Index 23.65 06/26/2023 6:36 AM QUALITY DIRECTOR Plan of Treatment Health Maintenance Due Date [...] this topic Medical Devices Implanted Type 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 Device Identifier Shelf Expiration Date Model / Serial / Lot Baseplate Glenosphere Mini 25mm Tpr Adap - [id number] Implanted:Qty: 1 on 06/26/2023 at [employer] Left: Shoulder BIOMET [id number] 05/21/2033 [id number] / NA / [id number] Tray Humeral Mini +0mm Tpr Offset 40mm - [id number] Implanted:Qty: 1 on 06/26/2023 at [facility] [employer] [facility] Left: Shoulder JORDYN [id number] 05/26/2033 [id number] / NA / [id number] Screw Central 6.5 X 20mm - [id number] Implanted:Qty: 1 on 06/26/2023 at [facility] [employer] [facility] Left: Shoulder BIOMET [id number] 05/14/2033 [id number] / NA / [id number] Screw Fixed Locking 4.75 X 25mm - [id number] Implanted:Qty: 1 on 06/26/2023 at [facility] [employer] [facility] Left: Shoulder BIOMET [id number] 03/19/2033 [id number] / NA / [id number] Screw Fixed Locking 4.75 X 15mm - [id number] Implanted:Qty: 1 on 06/26/2023 at [facility] [employer] [facility] Left: Shoulder BIOMET [id number] 05/21/2033 [id number] / NA / [id number] Screw Fixed Locking 4.75 X 15mm - [id number] Implanted:Qty: 1 on 06/26/2023 at [facility] [employer] [facility] Left: Shoulder BIOMET [id number] 05/21/2033 [id number] / NA / [id number] Screw Fixed Locking 4.75 X 30mm - [id number] Implanted:Qty: 1 on 06/26/2023 at [facility] [employer] [facility] Left: Shoulder BIOMET [id number] 04/29/2033 [id number] / NA / [id number] Glenosphere Versa-Dial 36mm +3mm - [id number] Implanted:Qty: 1 on 06/26/2023 at [facility] Left: Shoulder BIOMET [id number] 11/22/2032 [id number] / NA / [id number] Comprehensive Shoulder System Primary Shoulder Stem Micro Length Porous Plasma 15mm 55mm Long Implanted:Qty: 1 on 06/26/2023 at [facility] Left: Shoulder 06/05/2031 [id number] / NA / [id number] Bearing Humeral Prolong 36mm +3mm - [id number] Implanted:Qty: 1 on 06/26/2023 at [facility] Left: Shoulder JORDYN [id number] 03/31/2028 [id number] / NA / [id number] Insurance [facility] [employer] MEDIC[employer] COST PART A&B Advance Directives For more information, please contact: [phone] Documents on File Type Date Recorded Patient Outsoles Channel Opener Expl anation Advance Directive - RV 06/26/2023 4:57 PM ADVANCE DIRECTIVE * Full Code (Latest Code Status on File) Date Activated Date Inactivated Comments 06/26/2023 5:34 AM 06/27/2023 1:28 PM Care Teams Disability Coordinator Relationship Specialty Start Date End Date Elsewhere, Pcp PCP - General 06/26/23
--- OUTSIDE RECORDS SUMMARY | 2024-05-29 14:48 | XMS_ITS | Clinical Summary ---
Author Organization [facility] Address [place], [place] [address] Care Team Providers Care Suction Plate Roller Hand Name Role Phone Sindy Liu MD Primary Care Provider Allergies Active Allergy Reactions Criticality Noted Date [...] Of Breath. 8.5 g 2 07/23/2022 Active aspirin chewable 81 mg chewable tabletIndications: Acute HFrEF (heart failure with reduced ejection fraction) (HC) Chew 1 Tablet (81 mg) by mouth once daily. 30 Tablet 3 01/12/2023 Active budesonide-formote roL (Symbicort) 160-4.5 mcg/actuation (160-4.5 mcg each actuation) inhalerIndications :COPD, moderate (HC) INHALE TWO PUFFS BY MOUTH TWICE DAILY 30.6 g 4 03/18/2023 Active triamcinolone 0.5% (ARISTOCORT) 0.5 % creamIndications:C [...] at bedtime. 90 Tablet 3 05/17/2024 Active clotrimazole (MYCELEX MERCEDEZ) 10 mg mercedez Dissolve 10 mg in the mouth 4 times daily if needed. 4 Discontinue d(*Patient states no longer taking) LORazepam (ATIVAN) 0.5 mg tabIndications:Gen eralized anxiety disorder Take 1 Tablet (0.5 mg) by mouth once daily if needed for Anxiety. 15 Tablet 04/02/2023 4 Discontinue d(*Patient states no longer taking) atorvastatin (LIPITOR) 40 mg tabletIndications: Acute HFrEF (heart failure with reduced ejection fraction) (HC) Take 1 Tablet (40 mg) by mouth at bedtime. Further refills at upcoming appointment on March 17, 2024. 90 Tablet 02/11/2024 4 Discontinue d(Reorder (E-cancel not sent)) Active Problems Problem Noted Date Diagnosed Date COPD, moderate 10/08/2023 Acute HFrEF (heart failure with reduced ejection fraction) 10/08/2023 Stricture of artery 10/08/2023 Primary cardiomyopathy 10/08/2023 Moderate episode of recurrent major depressive d isorder 06/17/2023 Assessment & Plan (06/17/2023 1:31 PM VALET PARKER): Chart update only. ANAYA Segura .................... 06/17/2023 1:31 PM Pulmonary nodule, right 03/30/2020 Overview (03/30/2020): Two nodules, right lower lobe. CT done Mar 2020. Repeat in one year. Left mid foot arthritis 11/10/2014 Osteopenia 08/23/2013 Overview (06/28/2020): Bone density done at [facility]. Repeat Aug 2015. Bone density June 2016 osteopenia. Repeat 3-5 years. Bone density June 2020, osteopenia, worsening. Repeat 3-5 years. Knee osteoarthritis 11/27/2012 Right talonavicular arthritis 04/23/2012 OCD (obsessive compulsive disorder) 07/03/2011 Alcohol abuse, in remission 07/03/2011 Overview (05/25/2024): Quit mid 90 Generalized anxiety disorder 06/04/2011 Encounter for long-term (current) use of other m edications 06/04/2011 Overview (06/04/2011): Benzodiazepine. No contract. No evidence of misuse; ok to fill monthly unless this changes. ACP (advance care planning) 05/31/2011 Overview (05/31/2011): Patient has identified Health Care Agent(s): No Add Health Care Agents: No Patient has Advance Care Plan Documents (Health Care Directive, POLST): No, testing manager to review with patient . Patient has identified Specific Treatment Preferences: No Linn Walsh RN .................... 05/31/2011 2:29 PM Specific limits to treatment preferences NOT identified: ASSUME FULL TREATMENT. 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 Unspecified arthropathy, hand 08/04/2007 Resolved Problems Problem Noted Date Diagnosed Date Resolved Date Major depressive disorder, r ecurrent, in full remission 08/02/2020 05/25/2024 Acute gastric ulcer with hem orrhage, without mention of obstruction 06/18/2012 05/25/2024 Overview (09/17/2013): EGD 06/2012 gastritis with bleeding, repeat EGD in 3 months EGD 09/2013 no ulcer, normal Tobacco use disorder 06/17/2011 012 Anxiety state, unspecified 05/16/2011 1 08/04/2010 Medical Home 05/16/2011 12/27/2011 Overview (05/16/2011): Linn Walsh RN RN Medical Home Clinic Point Of Care Technician [facility] [phone] COPD, moderate 11/06/2010 07/23/2022 Overview (05/16/2011): Has had Home OXYGEN since October 2010. Routine general medical exam ination at a health care facility 08/21/2010 08/16/2011 Overview (08/21/2010): Gets Lump Roller services and Mammogram at [facility]. 08/21/2010 Major depressive disorder, r ecurrent episode, unspecified 10/05/2007 05/25/2024 Overview (07/29/2014): Past MH meds: Ambien Trazodone--dreams Ativan Xanax: initiated by PC, max 2.5mg daily Wellbutrin Zoloft Paxil Encounters Date Type Department Care Team Description 05/25/2024 10:40 AM VALET PARKER Office Visit [facility] [address] [place] [address] Conor Murray MD Medicare ANNUAL (subsequent) Visit (Patient is having memory problems) 05/25/2024 Travel 05/22/2024 Travel 05/20/2024 Orders Only [facility] Scanner 1 scan: (1-Ord) LEXUS, HEAD/BRAIN WO, 05/20/2024 05/19/2024 11:40 AM VALET PARKER Ancillary Procedure [facility] [address] [place] [address] 05/19/2024 11:00 AM VALET PARKER Ancillary Procedure [facility] [address] [place] [address] 05/18/2024 Travel 05/17/[address] [address] Hubert Blanton MD Refill Request 04/20/2024 Telephone [facility] [address] [place] [address] Elayne Penaloza MD Prior Authorization (fluvoxaMINE (LUVOX) 50 mg tablet APPROVED 01/21/24-04/20/25) 03/24/2024 Telephone [facility] [address] [facility] [place] [address] Elayne Penaloza MD Prior Authorization (fluvoxaMINE (LUVOX) 100 mg tablet PA NOT NEEDED) 03/23/2024 Orders Only [facility] [address] [facility] [place] [address] Peg Maravilla PA 1 scan: (1-Ord) [place]ld-EKG-03/22/24 03/23/2024 Telephone [facility] [address] [place] [address] Peg Maravilla PA Follow Up (ekg) 03/22/2024 10:45 AM CDT Preop Visit [facility] [address] [facility] [place] [address] Peg Maravilla PA Preoperative Exam (03/25/24 /Reverse should replacement Right side/[facility]/Dr. Barrera/[phone]) 03/22/2024 Telephone [facility] [address] [place] [address] Elayne Penaloza MD Form 03/22/2024 Travel 03/20/2024 Travel 03/17/2024 11:00 AM CDT Office Visit [facility] at [address] [address] Hubert Blanton MD Follow Up 03/17/2024 Refill [facility] [address] [place] [address] Peg Maravilla PA Refill Request (Albuterol-ipratropiu m) 03/17/2024 Travel from Last 3 Months Immunizations Name Administration Dates Next Due AMB INFLUENZA IIV3 (AGE 65+ YRS) PF (Flu Clinic Only) 06/12/2018 AMB Influenza, IIV4 PF (=>6 mos Flulaval,Fluzone Fluarix)(Flu Clinic Only) 03/31/2014 COVID-19 vaccine (Tynt-Bio NTech 30mcg/0.3mL) 12YO+ BIVALENT PF, MDV 07/23/2022 COVID-19 vaccine (Tynt-Bio NTech 30mcg/0.3mL) 12YO+ ZAHIRA-SUCROSE PF, MDV 02/06/2022 COVID-19 vaccine (AndrocialBio NTech 30mcg/0.3mL) PF, MDV 04/19/2021,10/03/2020,09/12/2020 Influenza, High-dose Inactivated 04/18/2024,03/15,05/16/2015 Influenza, High-dose Quadriv alent Inactivated 04/08/2023 Influenza, [...] Answer Date Recorded PHQ-2 TOTAL SCORE 0 05/25/2024 Social Connections Answer Date Recorded Do you often feel lonely or isolated from those around you? 0 06/16/2023 Alcohol Use Answer Date Recorded How often do you have a drink containing alcohol ? 0 01/18/2022 Average Number of Drinks Not on file 022 Frequency of Binge Drinking Not on file 0702/2022 Financial Resource Strain Answer Date R ecorded [...] Sign Reading Time Taken Comments Blood Pressure 122/78 05/25/2024 10:48 AM VALET PARKER Pulse 88 05/25/2024 10:48 AM VALET PARKER Temperature 36.6 ??C (97.8 ??F) 03/22/2024 10:57 AM C DT Respiratory Rate 16 03/22/2024 10:57 AM CDT Oxygen Saturation 97% 03/22/2024 10:57 AM CDT Inhaled Oxygen Concentration - - Weight 67.1 kg (148 lb) 05/25/2024 10:48 AM VALET PARKER with shoes Height 165.1 cm (5' 5) 05/25/2024 10:48 AM VALET PARKER Body Mass Index 24.63 05/25/2024 10:48 AM VALET PARKER Plan of Treatment Upcoming Encounters Date Type Department Care Team (Late st Contact Info) Description 06/14/2024 10:15 AM VALET PARKER Ancillary Procedure [facility] [address] [place] [address] 08/09/2024 8:45 AM VALET PARKER Office Visit [facility] [address] [facility] [address] Elayne Penaloza MD [address] [place] [address] Health Maintenance Due Date Last Done Comments RSV vaccine for adults or (1 - 1-dose 75+ series) 2023 COVID-19 vaccine series (2023- season) 2024 04/21/2023, 07/23/2022, 02/06/2022, Additional history exists Low Dose CT (for lung CA) ag e 50-80 05/19/2025 05/19/2024, 05/01/2023, 04/30/2022, Additional history exists BMI (ht and wt on same day) for age 18+ 05/25/2025 05/25/2024, 03/22/2024, 10/08/2023, Additional history exists Depression screening for age 12+ 05/25/2025 05/25/2024, 02/03/2024, 07/25/2023, Additional history exists Medicare Wellness for age 65+ 05/26/2025, 07/23/2022, 04/19/2021, Additional history exists CT Colonography for age [...] for age 50+ Completed 10/17/2020, 04/24/2020, 06/09/2013 Influenza for age 65+ Completed 04/18/2024 , 04/08/2023, 04/12/2022, Additional history exists Goals Goal Patient Goal Type Associated Problems [...] IN PLACE TO QUIT SMOKING Diet Linn aRgland RN Procedures Procedure Name Priority Date/Time Associated Diagnosis Comments TSH WITH REFLEX Routine 05/25/2024 11:29 AM VALET PARKER Concern about memory Fatigue, unspecified type VITAMIN B12 Routine 05/25/2024 11:29 AM VALET PARKER Concern about memory CBC W PLT NO DIFF Routine 05/25/2024 11: 29 AM VALET PARKER Concern about memory Fatigue, unspecified type SCAN-CT INTERPRETATION 12:00 AM VALET PARKER XR MAMMO TRACIE BILAT SCREEN Routine 05/19/2024 11:25 AM VALET PARKER Visit for screening mammogram CT CHEST SCREENING LOW DOSE WO CONTRAST Routine 05/19/2024 11:08 AM VALET PARKER Encounter for screening for lung cancer Former smoker [place] READING EKG - NO CHARGE, COMP ONLY Routine 03/23/2024 10:07 AM CDT Preop examination EKG 12 LEAD Routine 03/23/2024 10:06 AM CDT Preop examination HEMOGLOBIN Routine 03/22/2024 11:35 AM CDT Preop examination BASIC METABOLIC PANEL Routine 03/22/2024 11:35 AM CDT Preop examination LIPID PANEL W REFLEX MEASURED LDL Routine 02/10/2024 11:52 AM CDT 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 (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 therapy CT ABDOMEN PELVIS COLONOGRAPHY DIAGNOSTIC W Today 10/29/2022 6:58 PM CDT Positive colorectal cancer screening using DNA-based stool test Procedure and treatment not carried out for other reasons XR DXA BONE DENSITY 2 SITES AXIAL Routine 06/22/2020 10:53 AM VALET PARKER Asymptomatic postmenopausal state ANTI HCV Routine 03/28/2020 9:50 AM CDT Encounter for hepatitis C screening test for low risk patient from Last 3 Months or Most Recently Relevant to Health Maintenance Results * TSH WITH REFLEX (05/25/2024 11:29 AM VALET PARKER) Pathologist [facility] [place] TSH W/REFLEX TO FT4 0.94 0.40 - 4.50 mIU/L [facility] Blood BLOOD SPECIMEN / Unknown 05/25/2024 11:29 AM VALET PARKER 05/25/2024 11:32 AM VALET PARKER Narrative [facility] - 05/26/2024 5:04 AM VALET PARKER FASTING:NO FASTING: NO Conor Murray MD CHEMISTRY [facility] [address] [place] [address], [facility] [address] [facility] [address] [place] [address] * CBC W PLT NO DIFF (05/25/2024 11:29 AM VALET PARKER) Pathologist [facility] [place] WHITE BLOOD CELL COUNT 7.9 3.8 - 10.8 Thousand/u L [facility] RED BLOOD CELL COUNT 3.84 3.80 - 5.10 Million/uL [facility] HEMOGLOBIN 12.1 11.7 - 15.5 g/dL [facility] HEMATOCRIT 36.0 35.0 - 45.0 % [facility] MCV 93.8 80.0 - 100.0 fL [facility] MCH 31.5 27.0 - 33.0 pg [facility] MCHC 33.6 32.0 - 36.0 g/dL [facility] Comment: For adults, a slight decrease in the calculated MCHC value (in the range of 30 to 32 g/dL) is most likely not clinically significant; however, it should be interpreted with caution in correlation with other red cell parameters and the patient's clinical condition. RDW 12.0 11.0 - 15.0 % [facility] PLATELET COUNT 207 140 - 400 Thousand/u L [facility] MPV 9.2 7.5 - 12.5 fL [facility] Blood BLOOD SPECIMEN / Unknown 05/25/2024 11:29 AM VALET PARKER 05/25/2024 11:32 AM VALET PARKER Narrative [facility] - 05/26/2024 4:13 AM VALET PARKER FASTING:NO FASTING: NO Conor Murray MD HEMATOLOGY [facility] [address] [facility] [address], [employer] [facility] [place] [address] [place] [address] * VITAMIN B12 (05/25/2024 11:29 AM VALET PARKER) VITAMIN B12 876 200 - 1,100 pg/mL [facility] Blood BLOOD SPECIMEN / Unknown 05/25/2024 11:29 AM VALET PARKER 05/25/2024 11:32 AM VALET PARKER Narrative [facility] - 05/26/2024 5:04 AM VALET PARKER FASTING:NO FASTING: NO Conor Murray MD CHEMISTRY [facility] [address] [place] [address], [facility] [address] [place] [address] * SCAN-CT INTERPRETATION (05/20/2024 12:00 AM VALET PARKER) Anatomical Region Laterality Modality Other Scanner OTHER * XR MAMMO TRACIE BILAT SCREEN (05/19/2024 11:25 AM VALET PARKER) Anatomical Region Laterality Modality BREASTS, Breast Left, Breast Right Bilateral Mammography Impressions 05/19/2024 3:43 PM VALET PARKER ??There is no radiographic evidence for malignancy. ??Recommend annual mammograms. MAMMOGRAM ASSESSMENT: ??ACR 1 Negative PATIENTS: You will also receive a letter with your examination results in an easy to read format. ??If you have questions about your results, please contact your referring provider. Narrative 05/19/2024 3:43 PM VALET PARKER For Patients: As a result of the Century Cures Act, medical imaging exams and procedure reports are released immediately into your electronic medical record. You may view this report before your referring provider. If you have questions, please contact your health care provider. XR MAMMO TRACIE BILAT SCREEN [[id number]] CLINICAL HISTORY: ??This is an asymptomatic 73 y.o. patient. INDICATION FOR EXAM: Mammogram Screening. TECHNIQUE: CC & MLO views were obtained. ??This study was evaluated with the assistance of Computer-Aided Detection. Breast Tomosynthesis was used in interpretation. COMPARISON FILM: Yes 03/25/23 [facility] 01/28/22 [employer] FINDINGS: ??There are scattered areas of fibroglandular density. There are no dominant masses, suspicious micro calcifications or areas of architectural distortion. Peg Maravilla PA MAMMO * CT CHEST SCREENING LOW DOSE WO CONTRAST (05/19/2024 11:08 AM VALET PARKER) Anatomical Region Laterality Modality Computed Tomogra phy Impressions 05/20/2024 4:13 PM VALET PARKER Stable pulmonary nodules. Lung-RADS Category 2, benign. Continue annual screening with low-dose chest CT in 12 months. Please note that all CT scans at this facility use dose modulation, iterative reconstruction and/or weight-based dosing when appropriate to reduce radiation dose to as low as reasonably achievable. ?? Dictated by: Inderjit Celeste MD @05/19/2024 7:23:57 PM /sp Neuroradiologist Narrative 05/20/2024 4:13 PM VALET PARKER For Patients: As a result of the [...] aggressive osseous lesions. Peg JULIEN CT * [place] READING EKG - NO CHARGE, COMP ONLY (03/23/2024 10:07 AM CDT) Peg JULIEN PB - PROVIDER CAMELIA DINGS * EKG 12 LEAD (03/23/2024 10:06 AM CDT) Peg JULIEN EKG ORD * HEMOGLOBIN (03/22/2024 11:35 AM CDT) HEMOGLOBIN 12.1 12.0 - 16.0 g/dL 03/22/2024 11:55 AM CDT [facility] MCV 93 80 - 100 fL 03/22/2024 11:55 AM CDT [facility] Blood BLOOD SPECIMEN / Unknown Venipuncture / Unknown 03/22/2024 11:35 AM CDT 03/22/2024 11:35 AM CDT Peg JULIEN HEMATOLOGY [facility] [address] [place] [address], * (ABNORMAL) BASIC METABOLIC PANEL (03/22/2024 11:35 AM CDT) [facility] SODIUM 139 136 - 145 mmol/L 03/23/2024 5:03 AM T [facility] POTASSIUM 4.4 3.5 - 5.1 mmol/L 03/23/2024 5:03 AM T [facility] CHLORIDE 102 98 - 107 mmol/L 03/23/2024 5:03 AM T [facility] CO2,TOTAL 22 22 - 29 mmol/L 03/23/2024 5:03 AM T [facility] ANION GAP 15 5 - 18 03/23/2024 5:03 AM T [facility] GLUCOSE 89 70 - 99 mg/dL 03/23/2024 5:03 AM T [facility] CALCIUM 9.0 8.8 - 10.2 mg/dL 03/23/2024 5:03 AM [facility] BUN 21 8 - 23 mg/dL 03/23/2024 5:03 AM [facility] CREATININE 1.09(H) 0.50 - 0.90 mg/dL 03/23/2024 5:03 AM [facility] BUN/CREAT RATIO 19 10 - 20 5:03 AM [facility] eGFR 53(L) >90 mL/min/1.7 3m2 03/23/2024 5:03 AM [facility] Comment:As of 2021, eG FR is calculated by the CKD-EPI creatinine equation without race adjustment. ??eGFR can be influenced by muscle mass, exercise, and diet. ??The reported eGFR is an estimation only and is only applicable if the renal function is stable. Blood BLOOD SPECIMEN / Unknown Venipuncture / Unknown 03/22/2024 11:35 AM CDT 03/22/2024 11:35 AM T Peg JULIEN [facility]STRY [facility] [address] [place] [address], [place] * LIPID PANEL W REFLEX MEASURED LDL (02/10/2024 11:52 AM CDT) CHOLESTEROL,TOTAL 113 100 - 199 mg/dL 02/11/2024 1:19 AM CDT [facility] Comment: Cholesterol, Total Reference Ranges Desirable <200 mg/dL Borderline 200-239 mg/dL High >=240 mg/dL TRIGLYCERIDES 74 <150 mg/dL 02/11/2024 1:19 AM CDT [facility] HDL CHOLESTEROL 53 >40 mg/dL 1:19 AM CDT [facility] NON-HDL CHOLESTEROL 60 <145 mg/dl 02/11/2024 1:19 AM CDT [facility] CHOL/HDL RATIO 2.13 <4.50 02/11/2024 1:19 AM CDT [facility] LDL CHOLESTEROL 45 <=130 mg/dL 02/11/2024 1:19 AM CDT [facility] VLDL CHOLESTEROL 15 <=30 mg/dL 02/11/2024 1:19 AM CDT [facility] PROVIDER ORDERED STATUS RANDOM 02/11/2024 1:19 AM CDT [facility] Blood BLOOD SPECIMEN / Unknown Venipuncture / Unknown 02/10/2024 11:52 AM CDT 02/10/2024 11:52 AM CDT Elayne Penaloza MD CHEMISTRY [facility] [address] [place] [id number], [place] * CT ABDOMEN PELVIS COLONOGRAPHY DIAGNOSTIC W (10/29/2022 6:58 PM CDT) Anatomical Region Laterality Modality Abdomen, Pelvis Computed Tomogra phy 10/29/2022 6:58 PM CDT Impressions 10/30/2022 8:33 AM CDT IMPRESSION: 1. ??Extremely tortuous redundant colon. 2. ??Colon otherwise negative. 3. ??Moderate size sliding esophageal hiatal hernia. Narrative 10/30/2022 8:33 AM CDT EXAM: CT COLONOGRAPHY LOCATION: [facility] DATE/TIME: 10/29/2022 6:58 PM CDT INDICATION: [...] presence of which will not likely change management facilitator of the patient. ADDITIONAL FINDINGS: Moderate size sliding esophageal hiatal hernia. No other incidental findings. E Score: E3, Likely unimportant, incompletely characterized Procedure Note Janusz De Anda MD - 10/30/2022 EXAM: CT COLONOGRAPHY LOCATION: [facility] DATE/TIME: 10/29/2022 6:58 PM CDT INDICATION: [...] presence of which will not likely change management facilitator of the patient. ADDITIONAL FINDINGS: Moderate size sliding esophageal hiatal hernia. No other incidental findings. E Score: E3, Likely unimportant, incompletely characterized IMPRESSION: IMPRESSION: 1. Extremely tortuous redundant colon. 2. Colon otherwise negative. 3. Moderate size sliding esophageal hiatal hernia. Erasmo Eaton MD CT * (ABNORMAL) XR DXA BONE DENSITY 2 SITES AXIAL (06/22/2020 10:53 AM VALET PARKER) Anatomical Region Laterality Modality Spine, HIPS, HIPL, HIPR Other Narrative 06/26/2020 4:46 PM VALET PARKER Please see scanned document for results of this study. Shivani JULIEN DEXA * ANTI HCV (03/28/2020 9:50 AM CDT) HEPATITIS C ANTIBODY Non-React sasha Non-React sasha 03/28/2020 6:34 PM CDT [facility] Comment:Antibodies to HCV no t detected; does not exclude the possibility of exposure to HCV. Blood BLOOD SPECIMEN / Unknown Venipuncture / Unknown 03/28/2020 9:50 AM CDT 03/28/2020 9:50 AM CDT Shivani JULIEN SEND OUTS [facility] [address] [place] [address], from Last 3 Months or Most Recently Relevant to Health Maintenance Advance Directives Documents on File Type Date Recorded Patient [place] Line Attendant Expl anation Healthcare Directive Healthcare Directive 04/17/2020 PATIENT , HEALTHCARE DIRECTIVE, 04/17/2020 * Full Code (Latest Code Status on File) Date Activated Date Inactivated Comments 01/11/2023 1:25 AM 01/12/2023 2:20 PM Question Answer Comments Code Status Discussion: Unable to Assess Preferences, Provider to review later * Full Code Date Activated Date Inactivated Comments 06/14/2011 4:17 PM 06/25/2011 3:02 PM Care Teams Suction Plate Roller Hand Relationship Specialty Start Date End Date Sindy Liu MD [address] [place] [address] PCP - General Family Practice 05/25/24
== END 2024-05-25 15:18 | disposition home or self-care (01) ==
LOC: NFLDREF 05-29 14:46
PROVIDERS: PCP Student in an Organized Health Care Education/Training Program; Referring Provider Student in an Organized Health Care Education/Training Program; Visit Provider Nurse Practitioner Family
DX: R30.0 Dysuria (principal); N30.00 Acute cystitis without hematuria
CPT/HCPCS: 87086; 87186

== ENCOUNTER 2025-07-09 21:10 | Outpatient (CLI) | payer MEDICARE, BC, SELFPAY | END 2025-07-09 21:11 | disposition home or self-care (01) | LOC: AMB 07-11 00:21 | PROVIDERS: PCP Student in an Organized Health Care Education/Training Program; Visit Provider Family Medicine | DX: R10.9 Unspecified abdominal pain (principal); R11.10 Vomiting, unspecified | CPT/HCPCS: A0425; A0427 ==